=== PATIENT | female | born 1985 | race Caucasian/White ===

== ENCOUNTER 2024-07-12 19:47 | Outpatient (REF) | payer OTHER, SELFPAY ==
[2024-07-18 14:09] LABS: Age Gdln ACOG Testing Note (.); HPV Aptima Negative (Negative); IGP, Aptima HPV, rfx 16/18,45 Note (.)
== END 2024-07-12 19:48 | disposition home or self-care (01) ==
LOC: LAB 19:47
PROVIDERS: PCP Family Medicine; Visit Provider Physician Assistant
DX: Z01.419 Encounter for gynecological examination (general) (routine) without abnormal findings (principal)
CPT/HCPCS: 87624; 88175

== ENCOUNTER 2024-08-28 08:54 | Emergency (ER) | payer OTHER, SELFPAY ==
[2024-08-28 08:58] VITALS: BP 149/98; PULSE 94; TEMP 36.8; O2SAT 98; BMI 36.9
[2024-08-28 09:00] VITALS: O2SAT 97
[2024-08-28 09:01] VITALS: O2SAT 98
--- OUTSIDE RECORDS SUMMARY | 2024-08-28 09:02 | XMS_ITS | CCD ---
Author Organization [facility] Care Team Providers Care Cosmetics Supervisor Name Role Phone DR PAM KLINE Primary Care Unavailable DR JASON VUONG Admitting Dion VUONG, DR JASON Hernandez Attending UnavailNAZ Estevez Consulting Unavailable [place] VILLAR Consulting Unavailable Padmini Marroquin Unavailable Guadalupe Molina Unavailable Pam Kline MD Primary Care Provider NO [facility] Attending Unavailab LIZETT Aranda Attending Unavailable KAY CH Attending Unavailable KAY CH Referring Unavailable Medications Current Medications Medication Drug Class(es) Dates Sig (Normalized) Sig (Original) [id number] 200 actuat albuterol 0.09 mg/actuat metered dose inhaler (2 sources) beta2-Adrenergic Agonist Start: 08-12-2024 End: 08-12-2025 take 2 puff(s) by inhalation every four hours for wheezing albuterol HFA 90 mcg/act inhaler Indications: Acute cough Inhale 2 puffs every 4 (four) hours if needed for wheezing 18 g 08/12/2024 08/12/2025 Active amoxicillin 500 mg oral capsule (1 source) Penicillin-class Antibacterial Start: 11-10-2022 take 1 capsule by mouth every eight hours Amoxicillin 500 MG 1 capsule Orally three times a day for 10 day(s) Oct, Active amoxicillin 875 mg / clavulanate 125 mg oral tablet (2 sources) Penicillin-class Antibacterial Start: 08-12-2024 End: 08-19-2024 take 1 tablet by mouth in the morning amoxicillin-clavul anate (Augmentin) 875-125 MG tablet Indications: Acute cough Take 1 tablet (875 mg) by mouth in the morning and 1 tablet (875 mg) before bedtime. Do all this for 7 days. 14 tablet 08/12/2024 08/19/2024 Active doxycycline hyclate 100 mg oral tablet (2 sources) Tetracycline-class Drug Start: 08-12-2024 End: 08-12-2024 doxycycline (Vibra-Tabs) 100 MG tablet Indications: Acute cough Take 1 tablet (100 mg) by mouth in the morning and 1 tablet (100 mg) before bedtime. Do all this for 10 days. Take with a full glass of water and do not lie down for at least 30 minutes after.. 20 tablet 08/12/2024 08/12/2024 Discontinued (Entered in error) ibuprofen 200 mg oral tablet (7 sources) Nonsteroidal Anti-inflammatory Drug ibuprofen 200 MG tablet Take by mouth Active Multiple Vitamin (MULTIVITAMIN ADULT PO) (7 sources) Multiple Vitamin (MULTIVITAMIN ADULT PO) Multivitamin Active Completed/Discontinued Medications Medication Drug Class(es) Dates Sig (Normalized) Sig (Original) methylPREDNISolone 4 mg oral tablet (2 sources) Corticosteroid Start: methylPREDNISolone 4 MG as directed Orally for daily dose take half with breakfast, half with dinner for 6 days Aug, Not-Taking Problems Active Problems Problem Classification Problem Date Documented Date Episodic/Chronic Anxiety disorders (7 sources) Anxiety; Translations: [Anxiety disorder, unspecified] Onset: 01-04-2024 01-04-2024 Chronic E Codes: Natural/environment (1 source) Other and unspecified overexertion or strenuous movements or postures, initial encounter; Translations: [OTH AND UNS OVREXRT/STRN MVMT/POS INT] Onset: 04-25-2022 Episodic E Codes: Unspecified (1 source) Activity, walking, marching and hiking; Translations: [ACTIVITY WALKING MARCHING AND HIKING] Onset: 04-25-2022 Episodic Headache; including migraine (7 sources) Migraine without aura, not refractory ; Translations: [Migraine without aura, not intractable, without status migrainosus] Onset: 01-04-2024 01-04-2024 Chronic Other connective tissue disease (4 sources) Pain in right lower leg; Translations: [PAIN IN RIGHT LOWER LEG] Onset: 04-24-2022 Episodic Other lower respiratory disease (2 sources) Cough; Translations: [Acute cough] 08-12-2024 Episodic Other screening for suspected conditions (not mental disorders or infectious disease) (2 sources) Patient encounter status; Translations: [Encounter for screening mammogram for malignant neoplasm of breast] 07-12-2024 Episodic Other upper respiratory infections (3 sources) Acute pharyngitis, unspecified; Translations: [Streptococcal pharyngitis] Episodic Otitis media and related conditions (1 source) Other acute nonsuppurative otitis media, bilateral Episodic Sprains and strains (1 source) Strain of other muscle(s) and tendon(s) at lower leg level, right leg, initial encounter; Translations: [STRAIN OTH MSC TEND LOW RT LEG INIT] Onset: 04-25-2022 Episodic Past or Other Problems Problem Classification Problem Date Documented Da te Episodic/Chronic Headache; including migraine (7 sources) Headache disorder; Translations: [Other headache syndrome] Onset: 01-04-2024 01-04-2024 Episodic Other and unspecified benign neoplasm (7 sources) Melanocytic nevus; Translations: [Melanocytic nevi, unspecified] Onset: 01-04-2024 01-04-2024 Episodic Other skin disorders (7 sources) Skin tag; Translations: [Other hypertrophic disorders of the skin] Onset: 01-04-2024 01-04-2024 Episodic Unclassified (1 source) Contact with and (suspected) exposure to covid-19 Z20.822 Results Test Name Value Interpretation Reference Range Facility Laboratory - Microbiology an d Antimicrobial susceptibilityon 08-12-2024 SARS-CoV-2 (COVID-19) RNA LEONOR+probe Ql (Unsp spec) - [facility] No Panel Informationon 08-12 FLU A - [facility] FLU B - [facility] [place] 3D e Interpretation and review of laboratory results Normal [facility] CHEST 2 VIEWSon XR CHEST 2 VIEWS Exam: XR - CHEST 2 VIEWS Reason for study: Productive cough Comparison: None FINDINGS: Lines and Tubes: None Lungs and Pleural Space: No focal consolidation, pleural effusion, or pneumothorax. Cardiac silhouette, hilar regions, and trachea: Normal. Thoracic osseous structures: Normal. Overlying soft tissues: Normal. Upper abdomen: Normal. IMPRESSION: Negative chest Dictated on: 08/12/2024 10:38 AM This report has been electronically signed and approved by the interpreting Radiologist. Electronically Signed Dhiraj Batres D.O. 2024-08-12 10:40:47 Normal Not Available IGP,APTIMA HPV,AGE GDLNon AGE GDLN ACOG TESTING Note . [facility] Comment on above: TESTS RESULT FLAG U NITS REF RANGE LAB Clinician Provided Cytology Information Source.............Cervix;Endocervix No. of containers..01 ThinPrep Vial Age Algo ACOG Kiki... FLAG LEGEND: L-Low Normal,H-High Normal,LL-Alert Low,HH-Alert High <-Panic Low,>-Panic High,A-Abnormal,AA-Critical Abnormal Performed at: 01 =[address] [place] [address] Billie Cervantes MD, HPV APTIMA Negative Negative [facility] Comment on above: This nucleic acid am plification test detects fourteen high- risk HPV types (16,18,31,33,35,39,45,51,52,56,58,59,66,68) without differentiation. Performed at: =[address] [id number] Safety Admin Assistant: Billie Cervantes MD, Phone: [phone] Performed at: [address] [place], [place] [id number] Safety Admin Assistant: Billie Cervantes MD, Phone: [phone] IGP, APTIMA HPV, RFX 16/18,[address] [facility] Comment on above: TESTS RESULT FLAG UN ITS REF RANGE LAB DIAGNOSIS: 02 NEGATIVE FOR INTRAEPITHELIAL LESION OR MALIGNANCY. CELLULAR CHANGES ASSOCIATED WITH INFLAMMATION ARE PRESENT. Specimen adequacy: 02 Satisfactory for evaluation. Endocervical and/or squamous metaplastic cells (endocervical component) are present. Performed by: 02 Venita Hart, Safety Tech (ASCP) . 02 Note: Note 02 The Pap smear is a screening test designed to aid in the detection of premalignant and malignant conditions of the uterine cervix. It is not a diagnostic procedure and should not be used as the sole means of detecting cervical cancer. Both false-positive and false-negative reports do occur. Test Methodology: Note 02 This liquid based ThinPrep(R) pap test was screened with the use of an image guided system. HPV Genotype Reflex Note 02 Criteria not met, HPV Genotype not performed. FLAG LEGEND: L-Low Normal,H-High Normal,LL-Alert Low,HH-Alert High <-Panic Low,>-Panic High,A-Abnormal,AA-Critical Abnormal Performed at: 02 [address] [facility] [address] [place] [address] Billie Cervantes MD, BRUSH-SPATULA CERVIX ENDOCERVIX [facility] Quick Strepon 11-10-2022 S. pyogenes Org specific cx Ql (Throat) Positive [facility] Other Quick Strep [facility] Other [facility]rep[facility] 08-12-2022 S. pyogenes Org specific cx Ql (Throat) Negative [facility] Other Quick Strep [facility] Other US MARICRUZ DOP LEG RTon 04-24-20 22 US MARICRUZ DOP LEG RT EXAM: US MARICRUZ DOP LEG RT HISTORY: Swelling of lower leg with right calf pain COMPARISON: None. TECHNIQUE: Multiple sonographic images of the deep veins of the right lower extremity were obtained, supplemented with Doppler. FINDINGS: The deep veins of the right lower extremity are well visualized from the groin to the mid calf. No filling defect is identified to indicate a thrombus. There is normal compression augmentation of flow throughout. Normal waveforms are present. IMPRESSION: There is no direct or indirect evidence of deep vein thrombosis in the right lower extremity at this time. Electronically authenticated by: [place] VILLAR Date: 2022-04-24 16:31 Normal [facility] Vital Signs Date Time Vital Sign Value Performing Clinician Facility 08-12-2024 09:50-0400 Body height 163.8 cm Kay Ch NP Work Phone: [facility] 08-12-2024 09:50-0400 Body mass index (BMI) [Ratio] 38.97 kg/m2 Kay Ch NP Work Phone: [facility] 08-12-2024 09:50-0400 Body temperature 100.8 [degF] Kay Ch NP Work Phone: [facility] 08-12-2024 09:50-0400 Body weight 104.6 kg Kay Ch NP Work Phone: [facility] 08-12-2024 09:50-0400 Diastolic blood pressure 74 mm[Hg] Kay Ch NP Work Phone: [facility] 08-12-2024 09:50-0400 Heart rate 97 /min Kay Ch NP Work Phone: [facility] 08-12-2024 09:50-0400 SaO2% (BldA) [Mass fraction] 99 % Kay Ch [employer] Work Phone: [facility] 08-12-2024 09:50-0400 Systolic blood pressure 120 mm[Hg] Kay Ch [employer] Work Phone: [facility] 07-12-2024 10:34-0400 Body mass index (BMI) [Ratio] 39.21 kg/m2 Lizett Arevalo PA Work Phone: [facility] 07-12-2024 10:34-0400 Body weight 105.23 kg Lizett Arevalo PA Work Phone: [facility] 07-12-2024 10:34-0400 Diastolic blood pressure 80 mm[Hg] Lizett rAevalo PA Work Phone: [facility] 07-12-2024 10:34-0400 Systolic blood pressure 130 mm[Hg] Lizett Arevalo PA Work Phone: [facility] 11-10-2022 11:45-0500 Body height 162.56 cm Guadalupe Molina Other [facility] Other 11-10-2022 11:45-0500 Body mass index (BMI) [Ratio] 36.04 kg/m2 Guadalupe Molina Other [facility] Other 11-10-2022 11:45-0500 Body temperature 98.3 [degF] Guadalupe Tracy Other [facility] Other 11-10-2022 11:45-0500 Body weight 95.26 kg Guadalupe Tracy Other [facility] Other 11-10-2022 11:45-0500 Diastolic blood pressure 90 mm[Hg] Guadalupe Molina Other [facility] Other 11-10-2022 11:45-0500 Respiratory rate 18 /min Guadalupe Molina Other [facility] Other 11-10-2022 11:45-0500 SaO2% (BldA) [Mass fraction] 98 % Guadalupe Molina Other [facility] Other 11-10-2022 11:45-0500 Systolic blood pressure 147 mm[Hg] Guadalupe Molina Other [facility] Other 08-12-2022 17:15-0400 Body height 162.56 cm Padmini Marroquin Other [facility] Other 08-12-2022 17:15-0400 Body mass index (BMI) [Ratio] 36.04 kg/m2 Padmini Marroquin Other [facility] Other 08-12-2022 17:15-0400 Body temperature 97.1 [degF] Padmini Marroquin Other [facility] Other 08-12-2022 17:15-0400 Body weight 95.26 kg Padmini Marroquin Other [facility] Other 08-12-2022 17:15-0400 Respiratory rate 18 /min Padmini Marroquin Other [facility] Other 08-12-2022 17:15-0400 SaO2% (BldA) [Mass fraction] 99 % Padmini Marroquin Other [facility] Other Encounters Encounter Date Encounter Type Care Provider Facility Start: 08-12-2024 End: 08-12-2024 Clifford Ch NP Work Phone: [facility] Start: 08-12-2024 End: 08-12-2024 Bamboo flowsheet Kay Ch [employer] Work Phone: [facility] Start: 08-12-2024 End: 08-12-2024 ambulatory KAY CH Not Available Start: 08-12-2024 End: 08-12-2024 Office outpatient visit 15 minutes Kay Ch [employer] Work Phone: [facility] Comment on above: Acute cough (Primary Dx) Start: 08-12-2024 End: 08-12-2024 ambulatory KAY CH Not Available Start: 07-12-2024 End: 07-12-2024 Bamboo flowsheet Lizett BREEN Work Phone: [facility] Start: 07-12-2024 End: 07-18-2024 Bamboo flowsheet Lizett BREEN Work Phone: [facility] Start: 07-12-2024 End: 07-18-2024 [facility] Result Encounter Generic External Data Provider [facility] Unsolicited Start: 07-12-2024 End: 07-12-2024 Patient encounter procedure Lizett BREEN Work Phone: [facility] Start: 07-12-2024 End: 07-12-2024 Periodic preventive med est patient 40-64yrs Lizett BREEN Work Phone: [facility] Comment on above: Well woman exam with routine gynecological exam; Breast cancer screening by mammogram Start: 07-12-2024 End: 07-12-2024 ambulatory LIZETT AREVALO Not Available Start: 01-04-2024 End: 01-04-2024 ambulatory NO [facility] Not Available Start: 11-10-2022 End: 11-10-2022 ambulatory Guadalupe Molina Other [facility] Other Start: 11-10-2022 Office outpatient vi sit 25 minutes Guadalupe Molina [facility] [place] Start: 08-12-2022 End: 08-12-2022 ambulatory Padmini Marroquin Other [place] [employer] Other Start: 08-12-2022 Office outpatient ne w 30 minutes Padmini Marroquin [facility] [place] Start: 04-24-2022 End: 04-24-[address] PAM KLINE Facility:[facility]1 Procedures Date Procedure Procedure Detail Performing Clinician Start: 08-12-2024 STATUS COVID-19/FLU Joselyn Ch [employer] Work Phone: Start: 07-12-2024 IGP,APTIMA HPV,AGE GDLN Lizett Kristan PA Work Phone: Start: 07-12-2024 Microscopic observat ion [Identifier] in Cervix by Cyto stain Kay Ch [employer] Work Phone: Plan of Treatment Date Care Activity Detail Author Start: 07-12-2027 Screening for malignant neoplasm of cervix [facility] Start: 08-12-2024 End: 08-12-2025 [address] [facility] Work Phone: Comment on above: Expected: 08/12/2024 , Expires: 08/12/2025 Start: 08-12-2024 End: 08-12-2024 Patient encounter procedure 08/12/2024 10:00 AM EDT Office Visit [facility] [address] [place] [address] Kay Ch NP [address] [place] [address] Arrived [facility] Comment on above: Arrived Start: 07-12-2024 End: 09-11-2025 MG Breast - bilateral Screening Bilateral screening mammogram Imaging Routine Breast cancer screening by mammogram Expected: 07/12/2024 (Approximate), Expires: 09/11/2025 [facility] Work Phone: Comment on above: Expected: 07/12/2024 (Approximate), Expires: 09/11/2025 Start: 07-12-2024 End: 07-12-2024 Patient encounter procedure 07/12/2024 10:00 [address] EDT [address] [facility] [address] [place] [address] Lizett Arevalo PA [address] [address] [facility] Comment on above: Arrived Start: 06-12-2024 Influenza vaccination Influenza Vacc ine (#1) [facility] Start: 2024 Screening for malignant neoplasm of breast Mammogram [facility] Start: 02-12-2014 Screening for malignant neoplasm of cervix [facility] Start: 02-12-2005 Screening for malignant neoplasm of cervix Pap Smear [facility] THIN PREP TIS PAP AN D HR HPV DNA THIN PREP TIS PAP AND HR HPV DNA Pathology and Cytology Routine Well woman exam with routine gynecological exam Ordered: 07/12/[address] [facility] Comment on above: Ordered: 07/12/2024 Immunizations Immunization Date Immunization Notes Care Provider Fa [facility] 09-02-2019 influenza, injectabl e, quadrivalent, contains preservative Lizett BREEN Work Phone: [facility] 09-02-2019 influenza virus vacc ine, unspecified formulation Lizett BREEN Work Phone: [facility] 07-02-2018 influenza, injectabl e, quadrivalent, contains preservative Lizett BREEN Work Phone: [facility] 08-26-2017 influenza, injectabl e, quadrivalent, preservative free Lizett BREEN Work Phone: [facility] 07-18-2016 influenza, injectabl e, quadrivalent, preservative free Lizett BREEN Work Phone: [facility] 06-15-2015 influenza, seasonal, injectable, preservative free Lizett BREEN Work Phone: [facility] 04-24-2015 tetanus toxoid, redu alice diphtheria toxoid, and acellular pertussis vaccine, adsorbed Lizett BREEN Work Phone: [facility] 07-20-2014 influenza, seasonal, injectable, preservative free Lizett BREEN Work Phone: [facility] Payers Date Payer Category Payer Managed Care HMO (unspecified) [id number] 1984 Unknown [id number] 1984 Unknown [id number] 1984 Unknown [id number] 1984 Unknown [id number] 1959 Private Health Insurance [id number] Social History Date Type Detail Facility Start: 01-04-2024 End: 08-12-2024 Sex Assigned At [facility] Start: 01-04-2024 Tobacco smoking stat [facility] Never smoked tobacco [facility] Start: 01-04-2024 Tobacco use and exposure Smoke less tobacco non-user [facility] Start: 01-04-2024 End: 08-12-2024 Alcoholic beverage intake Ex-drinker (finding) [facility] Start: 01-04-2024 End: 08-12-2024 History of Social function [facility] In a typical week, h ow many times do you talk on the telephone with family, friends, or neighbors? Patient declined [facility] Are you now , , , , never or living with a partner? [facility] How often to you hav e a drink containing alcohol? Never [facility] In the past 12 month s, was there a time when you were not able to pay the mortgage or rent on time? No [facility] Start: 01-04-2024 Alcohol Comment Caffeine intak e: 1-2 cups per day coffee [facility] Start: 1985 Sex assigned at Female [facility] Start: 05-26-2023 Gender identity Identifies as female gender (finding) [facility] History of Present illness Narrative 08-12-2024 Kay ChGRADY - 08/12/2024 10:00 AM EDT Note Date & Type Note Facility 08-12-2024 History of Presen t illness Narrative Images from the original note were not included. Meliza Hightower is a 39 y.o. female presents with chief complaint of Cough (Started Thursday night, has wheezing. /) HPI: History of Present Illness The patient presents for evaluation of a cough. She began experiencing a cough on Thursday night, which has persisted since then. The cough is producing [place] green phlegm. She reports feeling wheezy when lying down to sleep last night and this morning. She also had a fever on Thursday and Thursday. She took Advil on these days for body aches and has been using a humidifier and taking hot showers to alleviate her symptoms. Her daughter recently had an ear infection and cough, leading her to believe she may have contracted the same illness. She reports no nasal congestion or drainage. Cough The current episode started in the past 7 days. The problem has been unchanged. The problem occurs every few minutes. The cough is Productive of sputum. Associated symptoms include wheezing. Pertinent negatives include no chest pain, chills, ear congestion, ear pain, fever, headaches, heartburn, hemoptysis, myalgias, nasal congestion, postnasal drip, rash, rhinorrhea, sore throat, shortness of breath, sweats or weight loss. The symptoms are aggravated by lying down. SUBJECTIVE: MEDICATIONS: Current Outpatient Medications Medication Instructions ibuprofen 200 MG tablet Take by mouth Multiple Vitamin (MULTIVITAMIN ADULT PO) Multivitamin REVIEW OF SYMPTOMS: Review of Systems Constitutional: Negative for chills, fever and weight loss. HENT: Negative for ear pain, postnasal drip, rhinorrhea and sore throat. Respiratory: Positive for cough and wheezing. Negative for hemoptysis and shortness of breath. Cardiovascular: Negative for chest pain. Gastrointestinal: Negative for heartburn. Musculoskeletal: Negative for myalgias. Skin: Negative for rash. Neurological: Negative for headaches. OBJECTIVE: Visit Vitals BP 120/74 (BP Location: Left arm, Patient Position: Sitting, BP Cuff Size: Large adult) Pulse 97 Temp 100.8 F (Tympanic) Ht 5' 4.5 Wt 230 lb 9.6 oz SpO2 99% BMI 38.97 kg/m OB Status Having periods Smoking Status Never BSA 2.19 m Physical Exam Vitals reviewed. Constitutional: Appearance: She is obese. HENT: Head: Normocephalic and atraumatic. Left Ear: Tympanic membrane normal. Nose: Congestion and rhinorrhea present. Comments: - sinus tenderness Mouth/Throat: Mouth: Mucous membranes are moist. Eyes: Pupils: Pupils are equal, round, and reactive to light. Cardiovascular: Rate and Rhythm: Normal rate and regular rhythm. Pulses: Normal pulses. Heart sounds: Normal heart sounds. Pulmonary: Effort: Pulmonary effort is normal. Breath sounds: Decreased breath sounds present. Comments: Decreased in BLL, rhonchi and wheezing on the right Musculoskeletal: Cervical back: Normal range of motion and neck supple. Skin: General: Skin is warm and dry. Capillary Refill: Capillary refill takes less than 2 seconds. Findings: No rash. Neurological: General: No focal deficit present. Mental Status: She is alert and oriented to person, place, and time. ASSESSMENT AND PLAN: Assessment/Plan Diagnoses and all orders for this visit: Acute cough - XR chest 2 views; Future - STATUS COVID-19/FLU - amoxicillin-clavulanate (Augmentin) 875-125 MG tablet; Take 1 tablet (875 mg) by mouth in the morning and 1 tablet (875 mg) before bedtime. Do all this for 7 days. - albuterol HFA 90 mcg/act inhaler; Inhale 2 puffs every 4 (four) hours if needed for wheezing -Covid/flu negative. Obtain chest x-ray, concern for pneumonia. Will start her on augmentin to cover. Can use mucinex OTC prn. Albuterol sent to pharmacy. Tylenol/motrin OTC prn for fever/discomfort. documented in this encounter [facility] History of Present illness Narrative 07-12-2024 NUHA Valencia - 07/12/2024 10:00 AM EDT Note Date & Type Note Facility 07-12-2024 History of Presen t illness Narrative Reason for Appointment: Patient ID: Meliza Hightower is a 39 y.o. female who presents for Gynecologic Exam Patient presents today for Annual Exam. MEDICATIONS Current Outpatient Medications Medication Instructions ibuprofen 200 MG tablet Oral Multiple Vitamin (MULTIVITAMIN ADULT PO) Multivitamin ALLERGIES No Known Allergies PROBLEMS Active Ambulatory Problems Diagnosis Date Noted Anxiety 01/04/2024 Atypical mole 01/04/2024 Migraine without aura and without status migrainosus, not intractable (CMS/HCC) 01/04/2024 Other headache syndrome 01/04/2024 Skin tag 01/04/2024 Resolved Ambulatory Problems Diagnosis Date Noted No Resolved Ambulatory Problems Past Medical History: Diagnosis Date Cross eyed Gestational diabetes HISTORY PAST MEDICAL HISTORY SOCIAL HISTORY Past Medical History: Diagnosis Date Cross eyed Gestational diabetes Social History Tobacco Use Smoking status: Never Smokeless tobacco: Never Substance Use Topics Alcohol use: Not Currently Comment: Caffeine intake: 1-2 cups per day coffee Drug use: Never FAMILY HISTORY No family history on file. SURGICAL HISTORY Past Surgical History: Procedure Laterality Date CT ANGIOGRAM CHEST 12/13/2018 CT ANGIOGRAM CHEST [facility] DILATION AND CURETTAGE OF UTERUS 2011 EYE SURGERY Procedure:surgical repair;Disease:cross eyed REVIEW OF SYSTEMS Review of Systems: Review of Systems Constitutional: Negative. HENT: Negative. Eyes: Negative. Respiratory: Negative. Cardiovascular: Negative. Gastrointestinal: Negative. Genitourinary: Negative. Musculoskeletal: Negative. Skin: Negative. Neurological: Negative. All other systems reviewed and are negative. Hematological: Negative. Endocrine: Negative. Allergic/Immunologic: Negative. OBJECTIVE Objective: Physical Exam Constitutional: Appearance: Normal appearance. She is well-developed. Genitourinary: Vulva normal. Right Adnexa: not tender and no mass present. Left Adnexa: not tender and no mass present. No cervical discharge. Breasts: Breasts are soft. Right: Normal. Left: Normal. HENT: Head: Normocephalic. Nose: Nose normal. Mouth/Throat: Mouth: Mucous membranes are moist. Cardiovascular: Rate and Rhythm: Normal rate and regular rhythm. Pulmonary: Effort: Pulmonary effort is normal. Breath sounds: Normal breath sounds. Abdominal: General: Bowel sounds are normal. There is no distension. Palpations: Abdomen is soft. Tenderness: There is no abdominal tenderness. There is no guarding or rebound. Musculoskeletal: General: No swelling. Normal range of motion. Cervical back: Normal range of motion. Right lower leg: No edema. Left lower leg: No edema. Neurological: General: No focal deficit present. Mental Status: She is alert and oriented to person, place, and time. Skin: General: Skin is warm and dry. Psychiatric: Mood and Affect: Mood normal. Behavior: Behavior normal. Vitals and nursing note reviewed. Exam conducted with a fermentation operator present. Vitals: Estimated body mass index is 38.67 kg/m as calculated from the following: Height as of 01/04/24: 5' 4.5 . Weight as of 01/04/24: 228 lb 12.8 oz. BP: No LMP recorded. ASSESSMENT & PLAN ICD-10-CM 1. Well woman exam with routine gynecological exam Z01.419 THIN PREP TIS PAP AND HR HPV DNA 2. Breast cancer screening by mammogram Z12.31 Bilateral screening mammogram Bilateral screening mammogram Pt present today for annual visit. Pt has not had an annual for several years. Pt complains of a lump on her left breast. A mammogram order was given to patient to schedule at [facility]. Pt also complains of a small hole on the outside of her right side pubic area. Pt states she had a small cyst like bump there a few weeks ago and it burst and thought it went away, however when she looked a few days ago there is a small hole and would like Lizett Arevalo to take a look and make sure there is no infection. Small openeing noted to the left inguinal region, silver nitrate applied to area. Pt to call if symptoms do not improve or drainage occures. Breast exam was preformed and pap smear was preformed and collected by Lizett Arevalo. Silver nitrate was put on the small opening patient was complaining of on her right pubic area. Advised to keep it covered while it heals. Pt verbally understood. Patient is to return back in a year for an annual visit. Documented by Sommer Calderón MA on behalf of: NUHA Valencia documented in this encounter [facility] Evaluation note 11-10-2022 Note Date & Type Note Facility 11-10-2022 Evaluation note Encounter Date Diagnosis Assessment Notes Oct, Sore throat (ICD-10 - J02.9) Oct, Strep pharyngitis (ICD-10 - J02.0) Strep throat material was printed Drink plenty fluids, get plenty of rest. Take Tylenol or Motrin as needed for aches pains or fevers. Off school today and tomorrow. Take the amoxicillin as prescribed until gone. Follow-up with your family physician if no improvement in 2 to 3 days. [facility] Other Evaluation note 08-12-2022 Note Date & Type Note Facility 08-12-2022 Evaluation note Encounter Date Diagnosis Assessment Notes Aug, Sore throat (ICD-10 - J02.9) Aug, Acute effusion of both middle ears (ICD-10 - H65.193) Advised patient that rapid Strep test and COVID PCR tests were negative today. Discussed diagnosis with patient. Advised to use rx of steroid as directed, finish entire course, take with food and plenty of water, reviewed side effects. Encouraged supportive care as directed, push fluids/rest, nasal saline washes as directed, may use Tylenol as needed, Zyrtec or Flonase. Patient to follow up with PCP or UC for any new or worsening symptoms. Immediate eval if SOB, wheezing, difficulty breathing, or other concerning symptoms. Patient verbalizes understanding and is agreeable to treatment plan Aug, Contact with and (suspected) exposure to covid-19 (ICD-10 - Z20.822) [facility] Other Clinical Note 06-17-2022 Note Date & Type Note Facility 06-17-2022 Note PROCEDURE: [facility] VCT 64, 5 mm slice axial images were acquired with coronal reconstruction through the brain without contrast. HISTORY: Headache FINDINGS: No worrisome intra- or extra-axial mass lesions, mass effect or hemorrhage are identified. No evidence of major vessel ischemia is noted. Ventricular size is normal for this age, and commensurate with the cerebral sulci. Calvarium, mastoid air cells, paranasal sinuses and orbital contents are unremarkable. IMPRESSION: Normal non-contrast brain CT. Report reported and signed by Polo Naylor on 06/17/2022 [address] [facility] Higher [facility] Administrator Evaluation note Note Date & Type Note Facility Evaluation note Diagnosis Well woman exam with routine gynecological exam Routine gynecological examination Breast cancer screening by mammogram documented in this encounter [facility] Evaluation note Note Date & Type Note Facility Evaluation note Diagnosis Acute cough- Primary documented in this encounter [facility] History general Narrative - Reported Note Date & Type Note Facility History general Narrative - Reported Type Surgical History eyes [facility] Other Summary Purpose Family History No Family History Records FoundNo Family History Records FoundNo Family History Records Found Advance Directives No Advanced Directives Records FoundNo Advanced Directives Records FoundNo Advanced Directives Records Found Additional Source Comments INFORMATION SOURCE (unrecogn ized section and content) DATE CREATED AUTHOR 05/01/2022 [facility] DATE CREATED AUTHOR AUTHOR'S ORGANIZ ATION 06/18/2022 [facility] DATE CREATED AUTHOR AUTHOR'S ORGANIZ ATION 08/17/2024 [facility] dical Specialists EPIC REASON FOR VISIT (unrecogniz ed section and content) Reason Comments Gynecologic Exam Reason Comments Cough Started Thursday nig ht, has wheezing. Care Teams (unrecognized sec tion and content) Cosmetics Supervisor Relationship Specialty Start Date End Date Pam Kline MD [address] [facility] [place] [address] PCP - General Family Medicine 02/17/23 Cosmetics Supervisor Relationship Specialty Start Date End Date Pam Kline MD [address] [place] [address] PCP - General Family Medicine 02/17/23 Cosmetics Supervisor Relationship Specialty Start Date End Date Pam Kline MD [address] [place] [address] PCP - General Family Medicine 02/17/23 Cosmetics Supervisor Relationship Specialty Start Date End Date Pam Kline MD [address] [facility] [place] [address] PCP - General Family Medicine 02/17/23 Cosmetics Supervisor Relationship Specialty Start Date End Date Pam Kline MD [address] [place] [address] PCP - General Family Medicine 02/17/23 FOR RECORDS PERTAINING TO PATIENTS WHO ARE OR HAVE BEEN ENROLLED IN A CHEMICAL DEPENDENCY/SUBSTANCEABUSE PROGRAM, SOME INFORMATION MAY BE OMITTED. This clinical summary was aggregated from multiple sources. Caution should be exercised in using it in the provision of clinical care. This summary normalizes information from multiple sources, and as a consequence, information in this document may materially change the coding, format and clinical context of patient data. In addition, data may be omitted in some cases. CLINICAL DECISIONS SHOULD BE BASED ON THE PRIMARY CLINICAL RECORDS. [employer] [facility]. provides no warranty or guarantee of the accuracy or completeness of information in this document.
[2024-08-28 09:03] VITALS: BP 149/98; PULSE 93; O2SAT 97
--- NOTE | 2024-08-28 09:04 | XR_ITS ---
The [address] [address] Patient Name: JAIMIE HIGHTOWER MRN: [id number] date: 1985 Sex: F Assigned Patient Location: ER Current Patient Location: ER Accession/Order Number: [id number] Exam Date: 08/28/2024 09:12 Report Date: 08/28/2024 09:25 At the request of: TERESA GUZMAN Procedure: XR chest 1V EXAM: XR chest 1V HISTORY: cp COMPARISON: None TECHNIQUE: AP portable upright view of the chest FINDINGS: Lungs are clear of focal consolidation. No pleural effusion or pneumothorax. Normal cardiomediastinal silhouette. No pulmonary vascular congestion. No acute osseous or soft tissue abnormalities. XR/XR chest 1V IMPRESSION: No acute cardiopulmonary process. Electronically authenticated by: KATJA DINERO Date: 08/28/2024 09:25
--- NOTE | 2024-08-28 09:04 | ECG_ITS ---
The [facility] Test Date: 2024-08-28 Pat Name: JAIMIE HIGHTOWER Department: Room: - Gender: Female Communication Manager: : 1985 Requested By: Order Number: [id number] Reading MD: TRINA SCHILLING Measurements Intervals [place] Rate: 85 P: 67 KS: 120 QRS: 70 QRSD: 88 T: 45 QT: 354 QTc: 396 Interpretive Statements 1100 Sinus rhythm 1102 Sinus arrhythmia 9110 normal ECG Compared to ECG 04/24/2022 16:48:00 No significant changes Electronically Signed On 08-28-2024 18:28:36 EST by TRINA SCHILLING
[2024-08-28 09:15] LABS: Basophils Absolute Auto 0.1 10^3/uL (0.0-0.1); Basophils Percent Auto 0.6 % (0.2-2.0); Eosinophils Absolute Auto 0.3 10^3/uL (0.0-0.7); Eosinophils Percent Auto 3.2 % (0.9-7.0); Hematocrit 41.9 % (36.0-48.0); Hemoglobin 13.9 g/dL (12.0-16.0); Immature Granulocytes Abs Auto 0.02 10^3/uL (0.00-0.03); Immature Granulocytes Pct Auto 0.2 % (0.0-0.5); Lymphocytes Absolute Auto 2.7 10^3/uL (1.2-3.8); Lymphocytes Percent Auto 31.4 % (20.5-60.0); Mean Corpuscular HGB Conc 33.2 g/dL (29.9-35.2); Mean Corpuscular Hemoglobin 30.8 pg (26.7-34.0); Mean Corpuscular Volume 92.9 fL (81.0-99.0); Mean Platelet Volume 9.4 fL (9.5-13.5); Monocytes Absolute Auto 0.4 10^3/uL (0.3-0.8); Monocytes Percent Auto 4.6 % (1.7-12.0); Neutrophils Absolute Auto 5.2 10^3/uL (1.4-6.5); Platelet Count 231 10^3/uL (150-450); Red Blood Count 4.51 10^6/uL (4.20-5.40); Red Cell Distribution Width 12.7 % (11.0-15.0); White Blood Count 8.7 10^3/uL (4.0-11.0)
--- NOTE | 2024-08-28 09:29 | ED_ITS ---
HPI - Chest Pain General Chief Complaint: Chest Pain Stated Complaint: CHEST PAIN Time Seen by Provider: 08/28/24 09:04 Source: patient Mode of arrival: walk-in Limitations: no limitations History of Present Illness HPI narrative: The patient is a 39 years old female coming to us with a history of chest pain for the last 3 days, mentioned that the chest pain is retrosternal sometimes associated with certain position and sleeping on her back will bring the pain more in addition to sometimes leaning forward. The patient denies any nausea vomiting or any fever or chills but she mentioned that she been taking an tibiotic for the second time since the beginning of the July which is last month after she was diagnosed with a cough and possible pneumonia The patient has history of using albuterol inhaler but she has not been using it at home for few days as she mentioned that she was taking antibiotic and she thought she does not needed The patient have no leg swelling no edema Related Data Home Medications ?Medication ?Instructions ?Recorded ?Confirmed albuterol sulfate 90 mcg/actuation 2 inh inhalation Q4H PRN shortness 08/28/24 08/28/24 aerosol inhaler of breath or wheezing azithromycin 250 mg tablet 250 mg PO DAILY 08/28/24 08/28/24 Previous Rx's ?Medication ?Instructions ?Recorded diclofenac sodium 75 mg 75 mg PO BID PRN pain #14 tabs 08/28/24 tablet,delayed release famotidine 20 mg tablet (Pepcid) 20 mg PO BID #10 tabs 08/28/24 Allergies Allergy/AdvReac Type Severity Reaction Status Date / Time No Known Drug Allergies Allergy Verified 08/28/24 08:58 Review of Systems ROS Status of ROS 10 or more systems reviewed and unremark able except as noted in history and below PFSH PFSH Social History Little interest or pleasure in doing things: not at all Feeling down, depressed, or hopeless: not at all Exam Narrative Exam Narrative: Nurses notes and vital signs reviewed and patient is not hypoxic. General: Well-appearing and in no apparent distress. Skin: Warm, dry, no pallor noted. No rash. Head: Normocephalic, atraumatic. Neck: Supple, non-tender. Eye: Pupils are equal, round and EOMI. No scleral icterus. Ears, Nose, Mouth, and Throat: TM are clear, no nasal mucosal hypertrophy. Oral mucosa is moist, no posterior oropharynx erythema, uvula is mid-line Cardiovascular: Regular Rate and Rhythm without murmur, gallop or rub. Respiratory: Rhonchi heard in right lung field Back: No midline thoracic or lumbar vertebral tenderness. No CVA tenderness Musculoskeletal: normal ROM, no calf or popliteal tenderness, no lower extremity edema/swelling GI: Abdomen is soft, non-distended. Normal bowel sounds. No masses appreciated. No tenderness to palpation. No rebound, guarding, or rigidity noted. Neurological: A&O x4. No cranial nerve dysfunction observed. No truncal ataxia. Moves all extremities. Sensation intact. Psychiatric: Cooperative and interactive. Normal mood and affect. Constitutional Vital Signs, click to edit/add: Last Vital Signs Temp 98.3 F 08/28/24 08:58 Pulse 75 08/28/24 09:30 Resp 6 L 08/28/24 09:30 BP 133/86 08/28/24 09:30 Pulse Ox 94 L 08/28/24 09:30 O2 Del Method Room Air 08/28/24 08:58 Course Vital Signs Vital signs: Vital Signs Temperature 98.3 F 08/28/24 08:58 Pulse Rate 94 H 08/28/24 08:58 Respiratory Rate 22 H 08/28/24 08:58 Blood Pressure 149/98 H 08/28/24 08:58 Pulse Oximetry 98 08/28/24 08:58 Oxygen Delivery Method Room Air 08/28/24 08:58 Temperature 98.3 F 08/28/24 08:58 Pulse Rate 75 08/28/24 09:30 Respiratory Rate 6 L 08/28/24 09:30 Blood Pressure 133/86 08/28/24 09:30 Pulse Oximetry 94 L 08/28/24 09:30 Oxygen Delivery Method Room Air 08/28/24 08:58 MDM - Chest Pain MDM Narrative Medical decision making narrative: The patient EKG showing sinus rhythm with a heart rate of [address] elevation or depression Chest x-ray showed no acute pathology The patient CBC and chemistry showed no acute pathology and the patient troponin were negative As she also had a D-dimer that was negative Her presentation is mostly secondary to atypical chest pain and mostly pleuritic pain she was treated in the ER with Toradol after which she was feeling better The patient discharged home with Voltaren as well as Pepcid The patient is to follow up with primary care physician in next 2-3 days or to return to the emergency department should any of the signs or symptoms worsen or new symptoms develop. The patient agrees with the following Diagnosis and Treatment plan and the patient will be discharged home. Lab Data Labs: Lab Results 08/28/24 Range/Units 09:05 WBC 8.7 (4.0-11.0) 10^3/uL RBC 4.51 (4.20-5.40) 10^6/uL Hgb 13.9 (12.0-16.0) g/dL Hct 41.9 (36.0-48.0) % MCV 92.9 (81.0-99.0) fL MCH 30.8 (26.7-34.0) pg MCHC 33.2 (29.9-35.2) g/dL RDW 12.7 (11.0-15.0) % Plt Count 231 (150-450) 10^3/uL MPV 9.4 L (9.5-13.5) fL Neut % (Auto) 60.0 (43.0-75.0) % Lymph % (Auto) 31.4 (20.5-60.0) % [place] % (Auto) 4.6 (1.7-12.0) % Eos % (Auto) 3.2 (0.9-7.0) % Baso % (Auto) 0.6 (0.2-2.0) % Neut # (Auto) 5.2 (1.4-6.5) 10^3/uL Lymph # (Auto) 2.7 (1.2-3.8) 10^3/uL [place] # (Auto) 0.4 (0.3-0.8) 10^3/uL Eos # (Auto) 0.3 (0.0-0.7) 10^3/uL Baso # (Auto) 0.1 (0.0-0.1) 10^3/uL Abs Immat Gran (auto) 0.02 (0.00-0.03) 10^3/uL Imm/Tot Granulo (auto) 0.2 (0.0-0.5) % PT 9.8 (9.0-11.6) sec INR <0.93 D-Dimer 0.43 (<=0.59) mg/L FEU Sodium 142 (136-145) mmol/L Potassium 4.1 (3.5-5.1) mmol/L Chloride 104 (98-107) mmol/L Carbon Dioxide 23.5 (21.0-32.0) mmol/L Anion Gap 18.6 BUN 9.0 (7.0-18.0) mg/dL Creatinine 0.91 (0.55-1.02) mg/dL Est GFR ( Amer) >60 (>=60 mL/min/1.73m^2) Est GFR (Non-Af Amer) >60 (>=60 mL/min/1.73m^2) BUN/Creatinine Ratio 9.9 Glucose 103 (74-106) mg/dL Calcium 8.7 (8.5-10.1) mg/dL Total Bilirubin 0.7 (0.2-1.0) mg/dL AST 18 (15-37) U/L ALT 28 (14-59) U/L Alkaline Phosphatase 87 (46-116) U/L Troponin I High Sens 5.5 (4.0-51.3) pg/mL Total Protein 7.4 (6.4-8.2) g/dL Albumin 3.5 (3.4-5.0) g/dL Globulin 3.9 g/dL Albumin/Globulin Ratio 0.9 Serum HCG, Qual Negative (NEGATIVE) Discharge Plan Discharge Chief Complaint: Chest Pain Clinical Impression: Atypical chest pain, Chest pain, pleuritic Patient Disposition: Home, Self-Care Time of Disposition Decision: 09:55 Condition: Good Prescriptions / Home Meds: New famotidine [Pepcid] 20 mg tablet 20 mg PO BID Qty: 10 0RF diclofenac sodium 75 mg tablet,delayed release (DR/EC) 75 mg PO BID PRN (Reason: pain ) Qty: 14 0RF No Action albuterol sulfate 90 mcg/actuation HFA aerosol inhaler 2 inh INHALATION Q4H PRN (Reason: shortness of breath or wheezing) azithromycin 250 mg tablet 250 mg PO DAILY Rx Instructions: Started on 08/26/24 Print Language: Sinhala Instructions: Chest Pain (DC), Noncardiac Chest Pain (ED) Referrals: TANYA KLINE [Primary Care Provider] - 1 week
[2024-08-28 09:30] VITALS: BP 133/86; PULSE 75; O2SAT 94
[2024-08-28 09:30] LABS: HCG Qualitative NEGATIVE (NEGATIVE); Internal Control Within Normal Limits
[2024-08-28 09:33] LABS: Alanine Aminotransferase 28 U/L (14-59); Albumin Globulin Ratio 0.9; Albumin Level 3.5 g/dL (3.4-5.0); Alkaline Phosphatase 87 U/L (46-116); Anion Gap 18.6; Aspartate Amino Transferase 18 U/L (15-37); BUN Creatinine Ratio 9.9; Bilirubin Total 0.7 mg/dL (0.2-1.0); Calcium 8.7 mg/dL (8.5-10.1); Carbon Dioxide 23.5 mmol/L (21.0-32.0); Chloride 104 mmol/L (98-107); Estimated GFR (African America >60 (>=60 mL/min/1.73m^2); Estimated GFR (Non-African Ame >60 (>=60 mL/min/1.73m^2); Globulin 3.9 g/dL; Glucose 103 mg/dL (74-106); Potassium 4.1 mmol/L (3.5-5.1); Sodium 142 mmol/L (136-145); Total Protein 7.4 g/dL (6.4-8.2); Troponin I High Sensitivity 5.5 pg/mL (4.0-51.3)
[2024-08-28 09:35] LABS: D Dimer 0.43 mg/L FEU (<=0.59); Prothrombin Time 9.8 sec (9.0-11.6)
[2024-08-28] MEDS: FAMOTIDINE/PF 20 MG/2 ML VIAL IV (09:35)
[2024-08-28] MEDS: KETOROLAC TROMETHAMINE 30 MG/ML VIAL 15 MG IVP (09:36)
[2024-08-28 09:37] LABS: INR <0.93
[2024-08-28 10:00] VITALS: BP 134/87
== END 2024-08-28 10:07 | disposition home or self-care (01) ==
PROVIDERS: Emergency Provider Emergency Medicine; PCP Family Medicine
DX: R07.89 Other chest pain (principal); R07.81 Pleurodynia
CPT/HCPCS: 36415; 71045; 80053; 84484; 84703; 85025; 85378; 85610; 93005; 96374; 96375; 99285; J1885

== ENCOUNTER 2024-09-01 15:40 | Outpatient (OUT) | payer OTHER, SELFPAY ==
--- NOTE | 2024-09-01 15:42 | MM_ITS ---
Patient Name: JAIMIE HIGHTOWER MR#: [id number] : 1985 Exam Date: 09/01/2024 Ordering Doctor: NUHA Rushing . RADIOLOGY REPORT PROCEDURE: MM TOMOSYNTHESIS SCREENING BI COMPARISON: None. INDICATIONS: Screening Calculator Name NCI Breast Cancer Risk Assessment Tool 5 Year Breast Cancer Risk 0.70% Lifetime Breast Cancer Risk 12.10% Personal Breast Cancer No Personal Ovarian Cancer No Treatments None Family Cancers Grandfather-paternal with prostate cancer at age ~70. LOCATION: [facility] BREAST COMPOSITION: There are scattered areas of fibroglandular density. FINDINGS: DIAGNOSTIC CATEGORY 2--BENIGN FINDING: RIGHT BREAST: No significant suspicious finding. Scattered benign-appearing lymph nodes are present. LEFT BREAST: No significant suspicious finding. Scattered benign-appearing lymph nodes are present. RECOMMENDATIONS: ROUTINE MAMMOGRAM AND CLINICAL EVALUATION IN 12 MONTHS. PLEASE NOTE: A NORMAL MAMMOGRAM DOES NOT EXCLUDE THE POSSIBILITY OF BREAST CANCER. A CLINICALLY SUSPICIOUS PALPABLE LUMP SHOULD BE BIOPSIED. Dictated by: Raul Houston M.D. on 09/02/2024 at 11:32 Approved by: Raul Houston M.D. on 09/02/2024 at 11:35
--- OUTSIDE RECORDS SUMMARY | 2024-09-01 15:57 | XMS_ITS | CCD ---
Author Organization [facility] Care Team Providers Care Saw Maker Name Role Phone DR PAM KLINE Primary [...] Drug Class(es) Dates Sig (Normalized) Sig (Original) [id number] 200 actuat albuterol 0.09 mg/actuat metered dose [...] (COVID-19) RNA LEONOR+probe Ql (Unsp spec) - [facility] No Panel Informationon 08-12 FLU A - [facility] FLU B - [facility] iCoolhunt e Interpretation and review of laboratory results Normal [facility] CHEST 2 VIEWSon XR CHEST [...] <-Panic Low,>-Panic High,A-Abnormal,AA-Critical Abnormal Performed at: 01 =[address] [place] [address] Billie Cervantes MD, HPV APTIMA Negative Negative [facility] Health[facility] e Comment on above: This nucleic acid am plification test detects fourteen high- risk HPV types (16,18,31,33,35,39,45,51,52,56,58,59,66,68) without differentiation. Performed at: =[address] [id number] [employer]: Billie Cervantes MD, Phone: [phone] Performed at: [address] [place], [place] [id number] [employer]: Billie Cervantes MD, Phone: [phone] IGP, APTIMA HPV, RFX 16/18,45 Note . [facility] Comment on above: TESTS RESULT FLAG UN ITS REF RANGE LAB DIAGNOSIS: 02 NEGATIVE FOR INTRAEPITHELIAL LESION OR MALIGNANCY. CELLULAR CHANGES ASSOCIATED WITH INFLAMMATION ARE PRESENT. Specimen adequacy: 02 Satisfactory for evaluation. Endocervical and/or squamous metaplastic cells (endocervical component) are present. Performed by: 02 Venita Hart, Epitaxial Reactor Technician (ASCP) . 02 Note: Note 02 The [...] High,A-Abnormal,AA-Critical Abnormal Performed at: 02 [facility] [address] [place] [address] Billie Cervantes MD, BRUSH-SPATULA CERVIX [facility]IX [facility] 11-10-2022 S. pyogenes Org specific cx Ql (Throat) Positive [facility] 08-12-2022 S. pyogenes Org specific cx Ql (Throat) Negative [facility] Other [place] MARICRUZ DOP LEG RTon 04-24-20 [...] by: [place] VILLAR Date: 2022-04-24 16:31 Normal [facility] Vital Signs Date Time Vital Sign Value Performing Clinician Facility 08-12-2024 09:50-0400 Body height 163.8 cm Kay Ch NP Work Phone: [facility] 08-12-2024 09:50-0400 Body mass index (BMI) [Ratio] 38.97 kg/m2 Kay Ch NP Work Phone: [facility] 08-12-2024 09:50-0400 Body temperature 100.8 [degF] Kay Ch NP Work Phone: [facility] 08-12-2024 09:50-0400 Body weight 104.6 kg Kay Ch NP Work Phone: [facility] 08-12-2024 09:50-0400 Diastolic blood pressure 74 mm[Hg] Kay Ch NP Work Phone: [facility] 08-12-2024 09:50-0400 Heart rate 97 /min Kay Ch NP Work Phone: [facility] 08-12-2024 09:50-0400 SaO2% (BldA) [Mass fraction] 99 % Kay Ch NATURAL RESOURCES SPECIALIST Work Phone: [facility] 08-12-2024 09:50-0400 Systolic blood pressure 120 mm[Hg] Kay Ch NATURAL RESOURCES SPECIALIST Work Phone: [facility] 07-12-2024 10:34-0400 Body mass index (BMI) [Ratio] 39.21 kg/m2 Lizett Arevalo PA Work Phone: [facility] 07-12-2024 10:34-0400 Body weight 105.23 kg Lizett Arevalo PA Work Phone: [facility] 07-12-2024 10:34-0400 Diastolic blood pressure 80 mm[Hg] Lizett Arevalo PA Work Phone: [facility] 07-12-2024 10:34-0400 Systolic blood pressure 130 mm[Hg] Lizett Arevalo PA Work Phone: [facility] 11-10-2022 11:45-0500 Body height 162.56 cm Guadalupe Molina Other [facility] Other 11-10-2022 11:45-0500 Body mass index (BMI) [Ratio] 36.04 kg/m2 Guadalupe Molina Other [facility] Other 11-10-2022 11:45-0500 Body temperature 98.3 [degF] Guadalupe Tracy Other [facility] Other 11-10-2022 11:45-0500 Body weight 95.26 kg Guadalupe Tracy Other [facility] Other 11-10-2022 11:45-0500 Diastolic blood pressure 90 mm[Hg] Guadalupe Molina Other [facility] Other 11-10-2022 11:45-0500 Respiratory rate 18 /min Guadalupe Molina Other [facility] Other 11-10-2022 11:45-0500 SaO2% (BldA) [Mass fraction] 98 % Guadalupe Molina Other [facility] Other 11-10-2022 11:45-0500 Systolic blood pressure 147 mm[Hg] Guadalupe Molina Other [facility] Other 08-12-2022 17:15-0400 Body height 162.56 cm Padmini Marroquin Other [facility] 08-12-2022 17:15-0400 Body mass index (BMI) [Ratio] 36.04 kg/m2 Padmini Marroquin Other [facility] 08-12-2022 17:15-0400 Body temperature 97.1 [degF] Padmini Marroquin Other [facility] 08-12-2022 17:15-0400 Body weight 95.26 kg Padmini Marroquin Other [facility] Other 08-12-2022 17:15-0400 Respiratory rate 18 /min Padmini Marroquin Other [facility] 08-12-2022 17:15-0400 SaO2% (BldA) [Mass fraction] 99 % Padmini Marroquin Other [facility] Other Encounters Encounter Date Encounter Type Care Provider Facility Start: 08-12-2024 End: 08-12-2024 Clifford Ch NP Work Phone: [facility] Start: 08-12-2024 End: 08-12-2024 Bamboo flowsheet Kay Ch NATURAL RESOURCES SPECIALIST Work Phone: [facility] Start: 08-12-2024 End: 08-12-2024 ambulatory KAY CH Not Available Start: 08-12-2024 End: 08-12-2024 Office outpatient visit 15 minutes Kay Ch NATURAL RESOURCES SPECIALIST Work Phone: [facility] Comment on [...] Patient encounter procedure Lizett BREEN Work Phone: [facility] Start: 07-12-2024 End: 07-12-2024 Periodic preventive med est patient 40-64yrs Lizett BREEN Work Phone: [facility] Comment on above: Well woman exam with routine gynecological exam; Breast cancer screening by mammogram Start: 07-12-2024 End: 07-12-2024 ambulatory LIZETT AREVALO Not Available Start: 01-04-2024 End: 01-04-2024 ambulatory NO [facility] Not Available Start: 11-10-2022 End: 11-10-2022 ambulatory Guadalupe Molina Other [facility] Other Start: 11-10-2022 Office outpatient vi sit 25 minutes Guadalupe Molina [facility] Start: 08-12-2022 End: 08-12-2022 ambulatory Padmini Marroquin Other [place] [facility] Other Start: 08-12-2022 Office outpatient ne w 30 minutes Padmini Marroquin [facility] [place] Start: 04-24-2022 End: 04-24-[address] PAM KLINE Facility:[facility]1 Procedures Date Procedure Procedure Detail Performing Clinician Start: 08-12-2024 STATUS COVID-19/FLU Joselyn Ch NATURAL RESOURCES SPECIALIST Work Phone: Start: 07-12-2024 IGP,APTIMA HPV,AGE GDLN Lizett Kristan PA Work Phone: Start: 07-12-2024 Microscopic observat ion [Identifier] in Cervix by Cyto stain Kay Ch NATURAL RESOURCES SPECIALIST Work Phone: Plan of Treatment Date Care Activity Detail Author Start: 07-12-2027 Screening for malignant neoplasm of cervix [facility] Start: 08-12-2024 End: 08-12-2025 XR Chest 2 Views [facility] Work Phone: Comment on above: Expected: 08/12/2024 , Expires: 08/12/2025 Start: 08-12-2024 End: 08-12-2024 Patient encounter procedure 08/12/2024 10:00 AM EDT Office Visit [facility] [address] [place] [address] Kay Ch NP [address] [place] [address] Arrived [facility] Comment on above: Arrived Start: 07-12-2024 End: 09-11-2025 MG Breast - bilateral Screening Bilateral screening mammogram Imaging Routine Breast cancer screening by mammogram Expected: 07/12/2024 (Approximate), Expires: 09/11/2025 [facility] Work Phone: Comment on above: Expected: 07/12/2024 (Approximate), Expires: 09/11/2025 Start: 07-12-2024 End: 07-12-2024 Patient encounter procedure 07/12/2024 10:00 AM EDT Office Visit [facility] [address] [address] Lizett Arevalo PA [address] [place] [address] Arrived [facility] Comment on above: Arrived Start: 06-12-2024 Influenza vaccination Influenza Vacc ine (#1) [facility] Start: 2024 Screening for malignant neoplasm of breast Mammogram [facility] Start: 02-12-2014 Screening for malignant neoplasm of cervix [facility] Start: 02-12-2005 Screening for malignant neoplasm of cervix Pap Smear [facility] THIN PREP TIS PAP AN D HR HPV DNA THIN PREP TIS PAP AND HR HPV DNA Pathology and Cytology Routine Well woman exam with routine gynecological exam Ordered: 07/12/2024 [facility] Comment on above: Ordered: 07/12/2024 Immunizations Immunization Date Immunization Notes Care Provider Fa [facility] 09-02-2019 influenza, injectabl e, quadrivalent, contains preservative Lizett BREEN Work Phone: [facility] 09-02-2019 influenza virus vacc ine, unspecified formulation Lizett BREEN Work Phone: [facility] 07-02-2018 influenza, injectabl e, quadrivalent, contains preservative Lizett BREEN Work Phone: [facility] 08-26-2017 influenza, injectabl e, quadrivalent, preservative free Lizett BREEN Work Phone: [facility] 07-18-2016 influenza, injectabl e, quadrivalent, preservative free Lizett BREEN Work Phone: [facility] 06-15-2015 influenza, seasonal, injectable, preservative free Lizett BREEN Work Phone: [facility] 04-24-2015 tetanus toxoid, redu alice diphtheria toxoid, and acellular pertussis vaccine, adsorbed Lizett BREEN Work Phone: [facility] 07-20-2014 influenza, seasonal, injectable, preservative free Lizett BREEN Work Phone: [facility] Payers Date Payer Category Payer Managed Care HMO (unspecified) [id number] 1984 Unknown [id number] 1984 Unknown [id number] 1984 Unknown [id number] 1984 Unknown [id number] 1959 Private Health Insurance [id number] Social History Date Type Detail Facility Start: 01-04-2024 End: 08-12-2024 Sex Assigned At [facility] Start: 01-04-2024 Tobacco smoking stat [facility] Never smoked tobacco [facility] Start: 01-04-2024 [...] persisted since then. The cough is producing nooksack green phlegm. She reports feeling wheezy when [...] nursing note reviewed. Exam conducted with a patient support representative present. Vitals: Estimated body mass index is [...] was given to patient to schedule at [facility]. Pt also complains of a small hole [...] no improvement in 2 to 3 days. [facility] Other Evaluation note 08-12-2022 Note Date & [...] (suspected) exposure to covid-19 (ICD-10 - Z20.822) [facility] Other Clinical Note 06-17-2022 Note Date & Type Note Facility 06-17-2022 Note PROCEDURE: [facility] VCT 64, 5 mm slice axial images [...] signed by Polo Naylor on 06/17/2022 15[address] [facility] Retail Pharmacy Manager Evaluation note Note Date & Type Note Facility Evaluation note Diagnosis Well woman exam with routine gynecological exam Routine gynecological examination Breast cancer screening by mammogram documented in this encounter [facility] Evaluation note Note Date & Type Note Facility Evaluation note Diagnosis Acute cough- Primary documented in this encounter [facility] History general Narrative - Reported Note Date & Type Note Facility History general Narrative - Reported Type Surgical History eyes [facility] Other Summary Purpose Family History No Family History Records FoundNo Family History Records FoundNo Family History Records Found Advance Directives No Advanced Directives Records FoundNo Advanced Directives Records FoundNo Advanced Directives Records Found Additional Source Comments INFORMATION SOURCE (unrecogn ized section and content) DATE CREATED AUTHOR 05/01/2022 [facility] DATE CREATED AUTHOR AUTHOR'S ORGANIZ ATION 06/18/2022 [facility] dical Specialist DATE CREATED AUTHOR AUTHOR'S ORGANIZ ATION 08/17/2024 [facility] dical Specialists EPIC REASON FOR VISIT (unrecogniz ed section and content) Reason Comments Gynecologic Exam Reason Comments Cough Started Thursday nig ht, has wheezing. Care Teams (unrecognized sec tion and content) Saw Maker Relationship Specialty Start Date End Date Pam Kline MD [address] [facility] [address] PCP - General Family Medicine 02/17/23 Saw Maker Relationship Specialty Start Date End Date Pam Kline MD [address] [place] [address] PCP - General Family Medicine 02/17/23 Saw Maker Relationship Specialty Start Date End Date Pam Kline MD [address] [place] [address] PCP - General Family Medicine 02/17/23 Saw Maker Relationship Specialty Start Date End Date Pam Kline MD [address] [facility] [address] PCP - General Family Medicine 02/17/23 Saw Maker Relationship Specialty Start Date End Date Pam Kline MD [address] [facility] [address] PCP - General Family Medicine 02/17/23 FOR [...] BE BASED ON THE PRIMARY CLINICAL RECORDS. [employer] [facility]. provides no warranty or guarantee of the accuracy or completeness of information in this document.
== END 2024-09-01 15:41 | disposition home or self-care (01) ==
LOC: MAMMO 15:40
PROVIDERS: PCP Family Medicine; Visit Provider Physician Assistant
DX: Z12.31 Encounter for screening mammogram for malignant neoplasm of breast (principal); Z80.42 Family history of malignant neoplasm of prostate
CPT/HCPCS: 77063; 77067

== ENCOUNTER 2025-03-09 09:24 | Emergency (ER) | payer OTHER, SELFPAY ==
--- OUTSIDE RECORDS SUMMARY | 2025-03-08 12:30 | XMS_ITS | Encounter Summary ---
Author Organization [facility] Address [address] [facility] [place] [address] Care Team Providers Care Signal Maintainer Helper Name Role Phone Pam Armenta MD Primary Care Provider [phone] Reason for Visit * Reason Comments Fatigue Encounter Details Date Type Department Care Team (Latest Contact Info) Description 03/08/2025 12:30 PM EDT Office Visit [facility] [address] [place] [address] Lisa Rogers NP [address] [place] [address] Abdominal pain, unspecified abdominal location (Primary Dx); Chest pain, unspecified type; Other fatigue; Encounter for lipid screening for cardiovascular disease; Anxiety; Migraine without aura and without status migrainosus, not intractable (CMS/[facility]) Social History Tobacco Use Types Packs/Day Years Used Date Smoking Tobacco: Never Smokeless Tobacco: Never Tobacco Cessation:Counseling Given: Not Answered Alcohol Use Standard Drinks/Week Comments Not Currently 0 (1 standard drink = 0.6 oz pure alcohol) Caffeine intake: 1-2 cups per day coffee [id number] Health Literacy Answer Date Recor ded How often do you need to hav e someone help you when you read instructions, pamphlets, or other written material from your doctor or pharmacy? Never 03/08/2025 Humiliation, Afraid, Rape, and Kick questionnair e Answer Date Recorded Within the last year, have y ou been afraid of your partner or ex-partner? No 03/08/2025 Within the last year, have y ou been humiliated or emotionally abused in other ways by your partner or ex-partner? No Within the last year, have y ou been kicked, hit, slapped, or otherwise physically hurt by your partner or ex-partner? No 03/08/2025 Within the last year, have y ou been raped or forced to have any kind of sexual activity by your partner or ex-partner? No 03/08/2025 Social Connection and Isolat ion Panel [NHANES] Answer Date Recorded In a typical week, how many times do you talk on the phone with family, friends, or neighbors? More than three times a week 03/08/2025 How often do you get togethe r with friends or relatives? Once a week 03/08/2025 How often do you attend chur or buddhism services? More than 4 times per year 03/08/2025 Do you belong to any clubs o r organizations such as holiness groups, unions, fraternal or athletic groups, or school groups? Yes 03/08/2025 How often do you attend meet ings of the clubs or organizations you belong to? More than 4 times per year 03/08/2025 Are you , , di vorced, , never , or living with a partner? 03/08/2025 AUDIT-C Answer Date Recorded Q1: How often do you have a drink containing alc ohol? Monthly or less 03/08/2025 Q2: How many drinks containi ng alcohol do you have on a typical day when you are drinking? 1 or 2 03/08/2025 Q3: How often do you have si x or more drinks on one occasion? Never 03/08/2025 Overall Financial Resource Strain (CARDIA) Answe r Date Recorded How hard is it for you to pa y for the very basics like food, housing, medical care, and heating? Not hard at all 03/08/2025 [facility] [place] of Occupat ional Health - Occupational Stress Questionnaire Answer Date Recorded Do you feel stress - tense, restless, nervous, or anxious, or unable to sleep at night because your mind is troubled all the time - these days? Rather much 03/08/2025 Exercise Vital Sign Answer Date Recorde d On average, how many days pe r week do you engage in moderate to strenuous exercise (like a brisk walk)? 0 days 03/08/2025 On average, how many minutes do you engage in exercise at this level? 0 min 03/08/2025 Hunger Vital Sign Answer Date Recorded Within the past 12 months, y ou worried that your food would run out before you got the money to buy more. Never true 03/08/20 Within the past 12 months, t he food you bought just didn't last and you didn't have money to get more. Never true 03/08/2025 PRAPARE - Transportation Answer Date Re corded In the past 12 months, has l ack of transportation kept you from medical appointments or from getting medications? No 02/10 In the past 12 months, has l ack of transportation kept you from meetings, work, or from getting things needed for daily living? No 03/08/2025 Housing Stability Vital Sign Answer Danish e Recorded In the last 12 months, was t here a time when you were not able to pay the mortgage or rent on time? No 01/04/2024 In the last 12 months, how many places have you lived? 1 01/04/2024 In the last 12 months, was t here a time when you did not have a steady place to sleep or slept in a fpc (including now)? No 01/04/2024 Housing Stability Vital Sign Answer Danish e Recorded In the last 12 months, was t here a time when you were not able to pay the mortgage or rent on time? No 03/08/2025 In the past 12 months, how m any times have you moved where you were living? 0 03/08/2025 At any time in the past 12 m [facility], were you homeless or living in a fpc (including now)? No 03/08/2025 Comments No Sex and Gender Information Value Date Recorded Sex Assigned at Female 05/26/2023 6:44 AM EDT Legal Sex Female 7:06 PM EDT Gender Identity Female 05/26/2023 6:44 AM EDT Sexual Orientation Not on file documented as of this encounter Last Filed Vital Signs Vital Sign Reading Time Taken Comments Blood Pressure 126/70 03/08/2025 12:23 PM EDT Pulse 83 03/08/2025 12:23 PM EDT Temperature 36.3 C (97.3 F) 03/08/2025 12:23 PM EDT Respiratory Rate - - Oxygen Saturation 96% 03/08/2025 12:23 PM EDT Inhaled Oxygen Concentration - - Weight 105 kg (230 lb 6.4 oz) 03/08/2025 12:23 P M EDT Height - - Body Mass Index 38.94 08/12/2024 9:50 AM EDT documented in this encounter Functional Status * Audit-C Score Answer Date of Assessment Author 1 03/08/2025 10:26 AM EDT Mychart, Generic * Q1: How often do you have a drink containing alcohol? Answer Date of Assessment Author Monthly or less 03/08/2025 10:26 AM EDT Mychart, Generic * Q2: How many drinks containing alcohol do you have on a typical day when you are drinking? Answer Date of Assessment Author 1 or 2 03/08/2025 10:26 AM EDT Mychart, Generic * Q3: How often do you have six or more drinks on one occasion? Answer Date of Assessment Author Never 03/08/2025 10:26 AM EDT Mychart, Generic documented as of this encounter Progress Notes * Lisa Rogers, GRADY - 03/08/2025 12:30 PM EDT Images from the original note were not included. Meliza Mancini is a 40 y.o. female presents with chief complaint of No chief complaint on file. HPI: Last Thursday sx of extreme fatigue, lightheadedness, weakness, and tightness in chest. These sx come on and off with a total of 3 days of episodes. Fatigue Associated symptoms include fatigue. Pertinent negatives include no abdominal pain, arthralgias, chest pain, chills, coughing, numbness or sore throat. SUBJECTIVE: MEDICATIONS: ALLERGIES Current Outpatient Medications Medication Instructions Multiple Vitamin (MULTIVITAMIN ADULT PO) Multivitamin No Known Allergies PAST MEDICAL HISTORY: SOCIAL HISTORY SURGICAL HISTORY: Past Medical History: Diagnosis Date Cross eyed Gestational diabetes Social History Tobacco Use Smoking status: Never Smokeless tobacco: Never Vaping Use Vaping status: Never Used Substance Use Topics Alcohol use: Not Currently Comment: Caffeine intake: 1-2 cups per day coffee Drug use: Never Past Surgical History: Procedure Laterality Date CT ANGIOGRAM CHEST 12/13/2018 CT ANGIOGRAM CHEST [facility] DILATION AND CURETTAGE OF UTERUS 2011 EYE SURGERY Procedure:surgical repair;Disease:cross eyed REVIEW OF SYMPTOMS: Review of Systems Constitutional: Positive for fatigue. Negative for chills. HENT: Negative for ear discharge, ear pain, rhinorrhea and sore throat. Eyes: Negative for pain and redness. Respiratory: Negative for cough and chest tightness. Cardiovascular: Negative for chest pain and palpitations. Gastrointestinal: Negative for abdominal distention and abdominal pain. Genitourinary: Negative for difficulty urinating and frequency. Musculoskeletal: Negative for arthralgias and gait problem. Skin: Negative. Neurological: Negative for dizziness and numbness. Endocrine: Negative. Allergic/Immunologic: Negative. OBJECTIVE: Vitals: 03/08/25 1223 Temp: 97.3 ??F Physical Exam Vitals reviewed. Constitutional: Appearance: Normal appearance. HENT: Head: Normocephalic. Right Ear: Hearing and tympanic membrane normal. Left Ear: Hearing and tympanic membrane normal. Nose: Nose normal. Right Turbinates: Not enlarged. Left Turbinates: Not enlarged. Right Sinus: No maxillary sinus tenderness or frontal sinus tenderness. Left Sinus: No maxillary sinus tenderness or frontal sinus tenderness. Mouth/Throat: Lips: [place]. Mouth: Mucous membranes are moist. Pharynx: Oropharynx is clear. Uvula midline. Tonsils: No tonsillar exudate. Eyes: General: Lids are normal. Vision grossly intact. Gaze aligned appropriately. Extraocular Movements: Extraocular movements intact. Conjunctiva/sclera: Conjunctivae normal. Neck: Thyroid: No thyroid mass or thyromegaly. Vascular: No carotid bruit. Trachea: Trachea normal. Cardiovascular: Rate and Rhythm: Normal rate and regular rhythm. Pulses: Normal pulses. Heart sounds: Normal heart sounds. Pulmonary: Effort: Pulmonary effort is normal. Breath sounds: Normal breath sounds and air entry. Abdominal: General: Abdomen is flat. Bowel sounds are normal. Palpations: Abdomen is soft. Musculoskeletal: Cervical back: Full passive range of motion without pain, normal range of motion and neck supple. Lymphadenopathy: Cervical: No cervical adenopathy. Skin: General: Skin is warm. Capillary Refill: Capillary refill takes less than 2 seconds. Neurological: Mental Status: She is alert and oriented to person, place, and time. Sensory: Sensation is intact. Motor: Motor function is intact. Coordination: Coordination is intact. Psychiatric: Attention and Perception: Attention and perception normal. Mood and Affect: Mood and affect normal. Speech: Speech normal. Behavior: Behavior is cooperative. Thought Content: Thought content normal. ASSESSMENT AND PLAN: Assessment/Plan Diagnoses and all orders for this visit: Abdominal pain, unspecified abdominal location - POCT urinalysis dipstick manually resulted - Urine culture (clean catch); Future - POCT , urine Await results increase clear liquids Chest pain, unspecified type - ECG 12 lead; Future - XR chest 2 views; Future Patient will seek immediate medical attention if symptoms return or worsen. Other fatigue - TSH W/REFLEX TO FT4; Future Encounter for lipid screening for cardiovascular disease - Lipid panel; Future Anxiety - Comprehensive metabolic panel; Future Migraine without aura and without status migrainosus, not intractable (CMS/HCC)-stable. No follow-ups on file. documented in this encounter Plan of Treatment Scheduled Orders Name Type Priority Associated Diagnoses Orde r Schedule ECG 12 lead ECG Routine Chest pain, unspecified type Expected: 03/08/2025 (Approximate), Expires: 03/08/2026 Urine culture (clean catch) Microbiology Routine Abdominal pain, unspecified abdominal location Expected: 03/08/2025 (Approximate), Expires: 03/08/2026 documented as of this encounter Procedures Procedure Name Priority Date/Time Associated Diagnosis Comments POCT , URINE Routine 03/08/2025 12:54 PM EDT Abdominal pain, unspecified abdominal location POCT URINALYSIS DIPSTICK Routine 03/08/2025 12:54 PM EDT Abdominal pain, unspecified abdominal location TSH W/REFLEX TO FT4 Routine 03/08/2025 1 2:47 PM EDT Other fatigue LIPID PANEL Routine 03/08/2025 12:47 PM EDT Encounter for lipid screening for cardiovascular disease COMPREHENSIVE METABOLIC PANEL Routine 03/08/2025 12:47 PM EDT Anxiety documented in this encounter Results * XR chest 2 views (03/08/2025 1:07 PM EDT) Anatomical Region Laterality Modality Chest Radiographic Mica ging 03/08/2025 2:37 PM EDT Narrative 03/08/2025 2:37 PM EDT TITLE OF EXAM: XR CHEST 2 VIEWS REASON FOR EXAM: Chest tightness, fatigue for one month TECHNIQUE: Two radiographs of the chest. COMPARISON: Chest radiographs 08/12/2024 FINDINGS: Normal lung expansion. No diffuse or focal pulmonary abnormality. No significant effusion or pneumothorax. The cardiomediastinal silhouette is normal. No acute osseous or upper abdominal abnormality. IMPRESSION: No acute cardiopulmonary abnormality. DICTATED ON: 03/08/2025 12:27 PM This report has been electronically signed in approved by the interpreting radiologist. Procedure Note Tamy Naranjo MD - 03/08/2025 TITLE OF EXAM: XR CHEST 2 VIEWS REASON FOR EXAM: Chest tightness, fatigue for one month TECHNIQUE: Two radiographs of the chest. COMPARISON: Chest radiographs 08/12/2024 FINDINGS: Normal lung expansion. No diffuse or focal pulmonary abnormality. Nosignificant effusion or pneumothorax. The cardiomediastinal silhouette isnormal. No acute osseous or upper abdominal abnormality. IMPRESSION: No acute cardiopulmonary abnormality. DICTATED ON: 03/08/2025 12:27 PM This report has been electronically signed in approved by the interpretingradiologist. Lisa Rogers ICE CUTTER IMG XR PROCEDURES Final Result * POCT , urine (03/08/2025 12:54 PM EDT) Preg Test, Ur Negative Negative Urine 03/08/2025 12:5 4 PM EDT Lisa Rogers ICE CUTTER POINT OF CARE TEST ENTE R/EDIT ORDERABLES Final Result * (ABNORMAL) POCT urinalysis dipstick manually resulted (03/08/2025 12:54 PM EDT) Color, UA Light Yellow Clarity, UA Clear Glucose, UA Negative Negative - 2000(110) ++++ mg/dL Bilirubin, UA Negative Negative - 4(70) +++ mg/dL Ketones, UA Negative Negative - 160(16) ++++ mg/dL Spec Grav, UA 1.000 1 - 1.03 Blood, UA Negative Negative - 50 Alfredo/mcL pH, UA 5.0 5 - 9 Protein, UA Positive Negative - 2000(20) ++++ mg/dL Urobilinogen, UA 0.2 0.2 - 12 mg/dL Leukocytes, UA Positive Negative - 500+++ Michaela/mcL Nitrite, UA Negative Negative - Positive Urine 03/08/2025 12:5 4 PM EDT us Lisa Rogers NP POINT OF CARE TEST ENTE R/EDIT ORDERABLES Final Result * TSH W/REFLEX TO FT4 (03/08/2025 12:47 PM EDT) TSH W/REFLEX TO FT4 2.05 mIU/L [facility] Comment: Reference Range > or = 20 Years 0.40-4.50 Ranges First trimester 0.26-2.66 Second trimester 0.55-2.73 Third trimester 0.43-2.91 03/08/2025 12:4 7 PM EDT 03/08/2025 12:47 PM EDT Narrative Resulting Agency Comment Performing Organization Information Site ID: QPT Name: [employer] [facility] Address: [address] [place] [address], [address] [place] [id number] Director: Zack Barrios MD Lisa Rogers ICE CUTTER LAB BLOOD ORDERABLES Fi nal Result [facility] * (ABNORMAL) Lipid panel (03/08/2025 12:47 PM EDT) CHOLESTEROL, TOTAL 229(H) <200 mg/dL [facility] HDL CHOLESTEROL 45(L) > OR = 50 mg/dL [facility] TRIGLYCERIDES 189(H) <150 mg/dL [facility] LDL-CHOLESTEROL 151(H) mg/dL (calc) [facility] Comment: Reference range: <100 Desirable range <100 mg/dL for primary prevention; <70 mg/dL for patients with CHD or diabetic patients with > or = 2 CHD risk factors. LDL-C is now calculated using the Kasey calculation, which is a validated novel method providing better accuracy than the Friedewald equation in the estimation of LDL-C. Brenton ARRINGTON et al. ANNAMARIA. 2013;310(19): 2998-4074 (http://education.WEALTH at work.[employer]/faq/MJC546) CHOL/HDLC RATIO 5.1(H) <5.0 (calc) [facility] NON HDL CHOLESTEROL 184(H) <130 mg/dL (calc) [facility] Comment: For patients with diabetes plus 1 major ASCVD risk factor, treating to a non-HDL-C goal of <100 mg/dL (LDL-C of <70 mg/dL) is considered a therapeutic option. Blood Venous blood specimen / Unknown 03/08/2025 12:47 PM EDT 03/08/2025 12:47 PM EDT Narrative Resulting Agency Comment Performing Organization Information Site ID: QPT Name: [employer] [facility] Address: [address] [place] [address], [address] [place] [phone] Director: Zack Barrios MD Lisa Rogers NP LAB BLOOD ORDERABLES Fi nal Result [facility] * Comprehensive metabolic panel (03/08/2025 12:47 PM EDT) [facility] Glucose 92 65 - 99 mg/dL [facility] Comment: Fasting reference interval BUN 9 7 - 25 mg/dL [facility] Creatinine 0.64 0.50 - 0.99 mg/dL [facility] EGFR 114 > OR = 60 mL/min/1. 73m2 [facility] BUN/CREATININE RATIO SEE NOTE: 6 - 22 (calc) [facility] Comment: Not Reported: BUN and Creatinine are within reference range. Sodium 139 135 - 146 mmol/L [facility] Potassium, Bld 4.0 3.5 - 5.3 mmol/L [facility] Chloride 103 98 - 110 mmol/L [facility] Carbon Dioxide 27 20 - 32 mmol/L [facility] Calcium 8.9 8.6 - 10.2 mg/dL [facility] PROTEIN, TOTAL 7.1 6.1 - 8.1 g/dL [facility] ALBUMIN 4.4 3.6 - 5.1 g/dL [facility] GLOBULIN 2.7 1.9 - 3.7 g/dL (calc) [facility] ALBUMIN/GLOBULIN RATIO 1.6 1.0 - 2.5 (calc) [facility] BILIRUBIN, TOTAL 0.5 0.2 - 1.2 mg/dL [facility] ALKALINE PHOSPHATASE 86 31 - 125 U/L [facility] AST 15 10 - 30 U/L [facility] ALT 15 6 - 29 U/L [facility] Blood Venous blood specimen / Unknown 03/08/2025 12:47 PM EDT 03/08/2025 12:47 PM EDT Narrative Resulting Agency Comment Performing Organization Information Site ID: QPT Name: [facility] Address: [address] [place] [address], [address] [place] [phone] Director: Zack Barrios MD Lisa Rogers ICE CUTTER LAB BLOOD ORDERABLES Fi nal Result [facility] documented in this encounter Visit Diagnoses Diagnosis Abdominal pain, unspecified abdominal location- Primary Chest pain, unspecified type Other fatigue Encounter for lipid screening for cardiovascular disease Anxiety Anxiety state, unspecified Migraine without aura and without status migrainosus, not intractable (CMS/HCC) Chest pain, unspecified type documented in this encounter Care Teams Signal Maintainer Helper Relationship Specialty Start Date End Date Pam Armenta MD [address] [place] [address] PCP - General Family Medicine 02/17/23 documented as of this encounter
--- OUTSIDE RECORDS SUMMARY | 2025-03-08 13:00 | XMS_ITS | Encounter Summary ---
Author Organization [facility] Address [address] [place] [address] Care Team Providers Care Cafe Server Name Role Phone Pam Armenta MD Primary Care Provider [phone] Encounter Details Date Type Department Care Team (Latest Contact Info) Description 03/08/2025 1:00 PM EDT Ancillary Procedure [facility] [address] [place] [address] Chest pain, unspecified type Social History Tobacco Use Types Packs/Day Years Used Date Smoking Tobacco: Never Smokeless Tobacco: Never Alcohol Use Standard Drinks/Week Comments Not Currently [...] 03/08/2025 How often do you attend chur ch or oriental orthodox services? More than 4 times per year 03/08/2025 Do you belong to any clubs o r organizations such as jainism groups, unions, fraternal or athletic groups, or [...] and heating? Not hard at all 03/08/2025 [facility] of Occupat ional Health - Occupational Stress [...] money to buy more. Never true 03/08/20 25 Within the past 12 months, t he [...] place to sleep or slept in a [place] (including now)? No 01/04/2024 Housing Stability Vital Sign Answer Danish e Recorded In the last 12 months, was t here a time when you were not able to pay the mortgage or rent on time? No 03/08/2025 In the past 12 months, how m any times have you moved where you were living? 0 03/08/2025 At any time in the past [address] [facility], were you homeless or living in a [place] (including now)? No 03/08/2025 Comments No Sex and Gender Information Value Date Recorded Sex Assigned at Female 05/26/2023 6:44 AM EDT Legal Sex Female 7:06 PM EDT Gender Identity Female 05/26/2023 6:44 AM EDT Sexual Orientation Not on file documented as of this encounter Functional Status * Audit-C Score Answer Date of Assessment Author 1 03/08/2025 10:26 AM EDT Robertt, Generic * Q1: How often do you have a drink containing alcohol? Answer Date of Assessment Author Monthly or less 03/08/2025 10:26 AM EDT Mycbillyt, Generic * Q2: How many drinks containing alcohol do you have on a typical day when you are drinking? Answer Date of Assessment Author 1 or 2 03/08/2025 10:26 AM EDT Robertt, Generic * Q3: How often do you have six or more drinks on one occasion? Answer Date of Assessment Author Never 03/08/2025 10:26 AM EDT Robertt, Generic documented as of this encounter Plan of Treatment Not on file documented as of this encounter Procedures Procedure Name Priority Date/Time Associated Diagnosis Comments XR CHEST 2 VIEWS Routine 03/08/2025 1:07 PM EDT Chest pain, unspecified type documented in this encounter Results * XR [...] in approved by the interpretingradiologist. Lisa Rogers SPACE TECHNOLOGIST IMG XR PROCEDURES Final Result documented in this encounter Visit Diagnoses Diagnosis Chest pain, unspecified type documented in this encounter Care Teams Cafe Server Relationship Specialty Start Date End Date Pam Armenta MD [address] [place] [address] PCP - General Family Medicine 02/17/23 documented as of this encounter
--- OUTSIDE RECORDS SUMMARY | 2025-03-08 13:56 | XMS_ITS | Encounter Summary ---
Author Organization [facility] tem Address [id number] [address] [place] [address] Care Team Providers Care Test Engine Mechanic Name Role Phone Lisa Rogers Primary Care Pro vider Reason for Referral * Cardiology (Routine) - Closed Specialty Diagnoses / Procedures Referred By Khalif lara Referred To Contact Diagnoses Chest pain, unspecified type Procedures ECG 12 lead Lisa Rogers APRN-CNP [address] [place] [address] Phone: tel: fax: Referral ID Status Reason Start Date Expiration Date Visits Re quested Visits Authorized [id number] Closed 03/08/2025 03/08/2026 1 1 Reason for Visit * Cardiology (Routine) - Closed Specialty Diagnoses / Procedures Referred By Contac marco Referred To Contact Diagnoses Chest pain, unspecified type Procedures ECG 12 lead Lisa Rogers APRN-CNP [address] [place] [address] Phone: tel: fax: Referral ID Status Reason Start Date Expiration Date Visits Re quested Visits Authorized [id number] Closed 03/08/2025 03/08/2026 1 1 Encounter Details Date Type Department Care Team (Latest Contact Info) Description 03/08/2025 1:56 PM EDT - 03/08/2025 11:59 PM EDT Hospital Encounter [facility] - Cardiovascular [address] [place] [address] Chest pain, unspecified type Discharge Disposition: Home Social History Tobacco Use Types Packs/Day Years Used Date Smoking Tobacco: Never Assessed Comments Unknown Sex and Gender Information Value Date Recorded Sex Assigned at Not on file Legal Sex Female 1:13 PM EDT Gender Identity Not on file Sexual Orientation Not on file documented as of this encounter Plan of Treatment Not on file documented as of this encounter Procedures Procedure Name Priority Date/Time Associated Diagnosis Comments ECG 12-LEAD Routine 03/08/2025 2:01 PM EDT Chest pain, unspecified type documented in this encounter Results * ECG 12 lead (03/08/2025 2:01 PM EDT) 03/08/2025 2:01 PM EDT Narrative TRACEMASTERVUE - 03/08/2025 3:40 PM EDT us Lisa RENTERIA ECG ORDERABLES F inal Result TRACEMASTERVUE documented in this encounter Visit Diagnoses Diagnosis Chest pain, unspecified type documented in this encounter Care Teams Test Engine Mechanic Relationship Specialty Start Date End Date Lisa Rogers APRN-CNP [address] [place] [address] PCP - General Internal Medicine 03/08/25 documented as of this encounter
[2025-03-09] VITALS (14 sets, daily range): BP systolic 122–168; BP diastolic 84–111; PULSE 81–96; TEMP 36.8; O2SAT 93–97; BMI 37.8
--- OUTSIDE RECORDS SUMMARY | 2025-03-09 09:32 | XMS_ITS | Encounter Summary ---
Author Organization [facility] Address [address] [facility] [place] [address] Care Team Providers Care Java Sdet Name Role Phone Pam Armenta MD Primary Care Provider [phone] Encounter Details Date Type Department Care Team (Latest Contact Info) Description 03/08/2025 Travel Social History Tobacco Use Types Packs/Day Years [...] week 03/08/2025 How often do you attend [facility] or mu-ism services? More than 4 times per year 03/08/2025 Do you belong to any clubs o r organizations such as congregation groups, unions, fraternal or athletic groups, or [...] and heating? Not hard at all 03/08/2025 [facility] Occupat ional Health - Occupational Stress [...] place to sleep or slept in a assisted (including now)? No 01/04/2024 Housing Stability Vital Sign Answer Danish e Recorded In the last 12 months, was t here a time when you were not able to pay the mortgage or rent on time? No 03/08/2025 In the past 12 months, how m any times have you moved where you were living? 0 03/08/2025 At any time in the past 12 m [facility], were you homeless or living in a assisted (including now)? No 03/08/2025 Comments No Sex [...] Mychart, Generic documented as of this encounter Plan of Treatment Not on file documented as of this encounter Visit Diagnoses Not on filedocumented in this encounter Care Teams Java Sdet Relationship Specialty Start Date End Date Pam Armenta MD [address] [place] [address] PCP - General Family Medicine 02/17/23 documented as of this encounter
--- OUTSIDE RECORDS SUMMARY | 2025-03-09 09:32 | XMS_ITS | Clinical Summary ---
Author Organization [facility] tem Address [id number] [address] [place] [address] Care Team Providers Care Repairer Cylinder Heads Name Role Phone Sue Lisa Mary ARNOLDN-HONEY PROCESSOR Primary Care Pro vider Encounters Date Type Department Care Team Description 03/08/2025 1:56 PM EDT - 03/08/2025 11:59 PM EDT Hospital Encounter [facility] - Cardiovascular [address] [place] [id number] Chest pain, unspecified type Discharge Disposition: Home 03/08/2025 Travel from Last 3 Months Social History Tobacco Use Types Packs/Day Years Used Date Smoking Tobacco: Never Assessed Comments Unknown Sex and Gender Information Value Date Recorded Sex Assigned at Not on file Legal Sex Female 1:13 PM EDT Gender Identity Not on file Sexual Orientation Not on file Plan of Treatment Health Maintenance Due Date Last Done Comments Depression Screening 1996 Tobacco Screening 1996 Adult BMI Screening 02/12/2002 DTaP,Tdap and Td Vaccines (2 - Td or Tdap) 04/24/2025 04/24/2015 Influenza Vaccine 06/12/2025 09/02/2019, , 08/26/2017, Additional history exists Pap Smear 07/12/2027 07/12/2024 Medical Devices Not on file Procedures Procedure Name Priority Date/Time Associated Diagnosis Comments ECG 12-LEAD Routine 03/08/2025 2:01 PM EDT Chest pain, unspecified type from Last 3 Months Results * ECG 12 lead (03/08/2025 2:01 PM EDT) 03/08/2025 2:01 PM EDT Narrative TRACEMASTERVUE - 03/08/2025 3:40 PM EDT Lisa RENTERIA ECG ORDERABLES F inal Result TRACEMASTERVUE from Last 3 Months Insurance [employer] Care Teams Repairer Cylinder Heads Relationship Specialty Start Date End Date Lisa Rogers APRN-CNP [address] [place] [address] PCP - General Internal Medicine 03/08/25
--- OUTSIDE RECORDS SUMMARY | 2025-03-09 09:32 | XMS_ITS | Encounter Summary ---
Author Organization [email or web address] tem Address [facility] [id number] [address] [place] [address] Care Team Providers Care Bonded Structures Repairer Name Role Phone Lisa Rogers Primary Care Pro vider Encounter Details Date Type Department Care Team [...] on filedocumented in this encounter Care Teams Bonded Structures Repairer Relationship Specialty Start Date End Date Lisa Rogers APRN-CNP [address] [place] [address] PCP - General Internal Medicine 03/08/25 documented as of this encounter
--- OUTSIDE RECORDS SUMMARY | 2025-03-09 09:32 | XMS_ITS | Clinical Summary ---
Author Organization [facility] Address [address] [facility] [place] [address] Care Team Providers Care Operator Maintainer Name Role Phone Pam Kline MD Primary Care Provider [phone] Allergies No known active allergies Medications Multiple Vitamin (MULTIVITAMIN ADULT PO) Multivitamin Active ibuprofen 200 MG tablet Take by mouth 025 Discontinued albuterol HFA 90 mcg/act inhalerIndicat ions:Acute cough Inhale 2 puffs every 4 (four) hours if needed for wheezing 18 g 08/12/20 24 025 Discontinued diclofenac (Voltaren) 75 MG EC tablet Take 75 mg by mouth 2 (two) times a day as needed 08/28/20 025 Discontinued famotidine (Pepcid) 20 MG tablet Take 20 mg by mouth in the morning and 20 mg before bedtime. 08/28/20 24 025 Discontinued Active Problems Problem Noted Date Diagnosed Date Anxiety 01/04/2024 Atypical mole 01/04/2024 Migraine without aura and wi thout status migrainosus, not intractable 01/04/2024 Other headache syndrome 01/04/2024 Skin tag 01/04/2024 Encounters Date Type Department Care Team Description 03/08/2025 1:00 PM EDT Ancillary Procedure [facility] [address] [place] [address] Chest pain, unspecified type 03/08/2025 12:30 PM EDT Office Visit [facility] [address] [facility] [place] [address] Lisa Rogers NP Abdominal pain, unspecified abdominal location (Primary Dx); Chest pain, unspecified type; Other fatigue; Encounter for lipid screening for cardiovascular disease; Anxiety; Migraine without aura and without status migrainosus, not intractable ([facility]) 03/08/2025 Results Follow-Up [facility] [address] [facility] [place] [address] Lisa Rogers NP 03/08/2025 Bamboo flowsheet [facility] [address] [facility] [place] [address] Lisa Rogers NP 03/08/2025 Travel 12/30/2024 Telephone [facility] [address] [facility] [place] [address] Nika Blunt MA from Last 3 Months Immunizations Immunization Administration Dates Next Due Influenza, injectable, quadrivalent 09/02/2019,0 07/02/2018 Influenza, injectable, quadrivalent, preservativ e free 08/26/2017,07/18/2016 Influenza, seasonal, injectable, preservative fr ee 06/15/2015,07/20/2014 Tdap 04/24/2015 Family History Relation Name Status Comments Brother x1 Daughter x2 Father Alive Mother Alive Sister x2 Social History Tobacco Use Types Packs/Day Years [...] How often do you attend chur or oriental orthodox services? More than 4 times per year 03/08/2025 Do you belong to any clubs o r organizations such as yazidism groups, unions, fraternal or athletic groups, or [...] and heating? Not hard at all 03/08/2025 [facility] Occupat ional Health - Occupational Stress [...] place to sleep or slept in a chcf (including now)? No 01/04/2024 Housing Stability Vital Sign Answer Danish e Recorded In the last 12 months, was t here a time when you were not able to pay the mortgage or rent on time? No 03/08/2025 In the past 12 months, how m any times have you moved where you were living? 0 03/08/2025 At any time in the past 12 m [facility], were you homeless or living in a chcf (including now)? No 03/08/2025 Comments No Sex and Gender Information Value Date Recorded Sex Assigned at Female 05/26/2023 6:44 AM EDT Legal Sex Female 7:06 PM EDT Gender Identity Female 05/26/2023 6:44 AM EDT Sexual Orientation Not on file Last Filed Vital Signs Vital Sign Reading Time Taken Comments Blood Pressure 126/70 03/08/2025 12:23 PM EDT Pulse 83 03/08/2025 12:23 PM EDT Temperature 36.3 C (97.3 F) 03/08/2025 12:23 PM EDT Respiratory Rate - - Oxygen Saturation 96% 03/08/2025 12:23 PM EDT Inhaled Oxygen Concentration - - Weight 105 kg (230 lb 6.4 oz) 03/08/2025 12:23 P M EDT Height 163.8 cm (5' 4.5 ) 08/12/2024 9:50 AM EDT Body Mass Index 38.94 08/12/2024 9:50 AM EDT Plan of Treatment Health Maintenance Due Date Last Done Comments HPV/Cotest 02/12/2014 Influenza Vaccine (Season Ended) 2025 09/02/2019, 07/02/2018, 08/26/2017, Additional history exists Mammogram 09/02/2025 09/02/2024 Cervical Cancer Screening 07/12/2027 Pap Smear 07/12/2027 07/12/2024 Procedures Procedure Name Priority Date/Time Associated Diagnosis Comments XR CHEST 2 VIEWS Routine 03/08/2025 1:07 PM EDT Chest pain, unspecified type POCT , URINE Routine 03/08/2025 12:54 PM EDT Abdominal pain, unspecified abdominal location POCT URINALYSIS DIPSTICK Routine 03/08/2025 12:54 PM EDT Abdominal pain, unspecified abdominal location TSH W/REFLEX TO FT4 Routine 03/08/2025 1 2:47 PM EDT Other fatigue LIPID PANEL Routine 03/08/2025 12:47 PM EDT Encounter for lipid screening for cardiovascular disease COMPREHENSIVE METABOLIC PANEL Routine 03/08/2025 12:47 PM EDT Anxiety MM TOMOSYNTHESIS SCREENING BI 09/02/2024 11:35 AM EST PAP SMEAR Routine 07/12/2024 12:00 AM EDT from Last 3 Months or Most Recently Relevant to Health Maintenance Results * XR chest 2 views (03/08/2025 [...] in approved by the interpretingradiologist. Lisa Rogers STALLION KEEPER IMG XR PROCEDURES Final Result * POCT , urine (03/08/2025 12:54 PM EDT) Preg Test, Ur Negative Negative Urine 03/08/2025 12:5 4 PM EDT Lisa Rogers STALLION KEEPER POINT OF CARE TEST ENTE R/EDIT ORDERABLES [...] Positive Urine 03/08/2025 12:5 4 PM EDT iLsa Rogers NP POINT OF CARE TEST ENTE [...] Performing Organization Information Site ID: QPT Name: [facility] Address: [address] [place] [address], [address] [place] [phone] Director: Zack Barrios MD Lisa Rogers NP [...] equation in the estimation of LDL-C. Brenton SS et al. ANNAMARIA. 2013;310(19): 1182-3565 (http://education.Handy.Evident.io/faq/FDW792) CHOL/HDLC RATIO 5.1(H) <5.0 (calc) [facility] NON [...] Performing Organization Information Site ID: QPT Name: [facility] Address: [address] [place] [address], [address] [place] [phone] Director: Zack Barrios MD Lisa Rogers STALLION KEEPER LAB BLOOD ORDERABLES Fi nal Result [facility] * Comprehensive metabolic panel (03/08/2025 12:47 PM EDT) [facility] Glucose 92 65 - 99 mg/dL [facility] [...] Performing Organization Information Site ID: QPT Name: [facility] Address: [address] [place] [address], [address] [place] [phone] Director: Zack Barrios MD us Lisa Rogers STALLION KEEPER LAB BLOOD ORDERABLES Fi nal Result [facility] * MM TOMOSYNTHESIS SCREENING BI (09/02/2024 11:35 AM EST) Anatomical Region Laterality Modality Other 09/02/2024 11:3 5 AM EST Narrative 09/02/2024 11:36 [place] [address] Mammography Report Signed Patient: MELIZA MANCINI MR#: [id number] : 1985 Acct:[id number] Age/Sex: 39 / F ADM Date: 09/01/24 Loc: MAMMO Attending Dr: Lizett Rushing Ordering Physician: Lizett Rushing Results: Date of Service: 09/01/24 Follow Up: Procedure(s): MM tomosynthesis screening BI Accession Number(s): [id number] cc: Lizett Rushing; PAM KLINE Patient Name: MELIZA MANCINI MR#: [id number] : 1985 Exam Date: 09/01/2024 Ordering Doctor: NUHA Rushing . RADIOLOGY REPORT PROCEDURE: MM TOMOSYNTHESIS SCREENING BI COMPARISON: None. INDICATIONS: Screening Calculator Name NCI Breast Cancer Risk Assessment Tool 5 Year Breast Cancer Risk 0.70% Lifetime Breast Cancer Risk 12.10% Personal Breast Cancer No Personal Ovarian Cancer No Treatments None Family Cancers Grandfather-paternal with prostate cancer at age 70. LOCATION: [facility] BREAST COMPOSITION: There are scattered areas of fibroglandular density. FINDINGS: DIAGNOSTIC CATEGORY 2--BENIGN FINDING: RIGHT BREAST: No significant suspicious finding. Scattered benign-appearing lymph nodes are present. LEFT BREAST: No significant suspicious finding. Scattered benign-appearing lymph nodes are present. RECOMMENDATIONS: ROUTINE MAMMOGRAM AND CLINICAL EVALUATION IN 12 MONTHS. PLEASE NOTE: A NORMAL MAMMOGRAM DOES NOT EXCLUDE THE POSSIBILITY OF BREAST CANCER. A CLINICALLY SUSPICIOUS PALPABLE LUMP SHOULD BE BIOPSIED. Dictated by: Raul Houston M.D. on 09/02/2024 at 11:32 Approved by: Raul Houston M.D. on 09/02/2024 at 11:35 Dictated By: Raul Houston M.D. Signed By: 09/02/24 1136 DD/ 1135 TD/TT: Edger Technician: Procedure Note Radiology, Radiologist, MD - 09/02/2024 [place] [address] Mammography Report Signed Patient: MELIZA MANCINI KMR#: [id number] : 1985Acct:[id number] Age/Sex: 39 / FADM Date: 09/01/24 Loc: MAMMO Attending Dr: Lizett Rushing Ordering Physician: Lizett RushingResults: Date of Service: 09/01/24Follow Up: Procedure(s): MM tomosynthesis screening BI Accession Number(s): [id number] cc: Lizett Rushing; PAM KLINE Patient Name: MELIZA MANCINI MR#: [id number] : 1985 Exam Date: 09/01/2024 Ordering Doctor: NUHA Rushing . RADIOLOGY REPORT PROCEDURE: MM TOMOSYNTHESIS SCREENING BI COMPARISON: None. INDICATIONS: Screening Calculator Name NCI Breast Cancer Risk Assessment Tool 5 Year Breast Cancer Risk 0.70% Lifetime Breast Cancer Risk 12.10% Personal Breast Cancer No Personal Ovarian Cancer No Treatments None Family Cancers Grandfather-paternal with prostate cancer at age 70. LOCATION: [facility] BREAST COMPOSITION: There are scattered areas of fibroglandulardensity. FINDINGS: DIAGNOSTIC CATEGORY 2--BENIGN FINDING: RIGHT BREAST: No significant suspicious finding. Scatteredbenign-appearing lymph nodes are present. LEFT BREAST: No significant suspicious finding. Scatteredbenign-appearing lymph nodes are present. RECOMMENDATIONS: ROUTINE MAMMOGRAM AND CLINICAL EVALUATION IN 12 MONTHS. PLEASE NOTE: A NORMAL MAMMOGRAM DOES NOT EXCLUDE THE POSSIBILITY OFBREAST CANCER. A CLINICALLY SUSPICIOUS PALPABLE LUMP SHOULD BE BIOPSIED. Dictated by: Raul Houston M.D. on 09/02/2024 at 11:32 Approved by: Raul Houston M.D. on 09/02/2024 at 11:35 Dictated By: Raul Houston M.D. Signed By:09/02/24 1136 DD/ 1135 TD/TT: Edger Technician: us Generic External Data Provider [facility] Final Result * Pap Smear (07/12/2024 12:00 AM EDT) Swab Cervical swab / Unknown us Lizett BREEN LAB CYTOLOGY ORDERABLES Final Re sult EXTERNAL LAB from Last 3 Months or Most Recently Relevant to Health Maintenance Insurance [employer] Care Teams Operator Maintainer Relationship Specialty Start Date End Date Pam Kline MD [address] [place] [address] PCP - General Family Medicine 02/17/23
--- OUTSIDE RECORDS SUMMARY | 2025-03-09 09:32 | XMS_ITS | Encounter Summary ---
Author Organization [facility] Address [address] [place] [address] Care Team Providers Care Prestidigitator Name Role Phone Pam Armenta MD Primary Care Provider [phone] Encounter Details Date Type Department Care Team (Late st Contact Info) Description 03/08/2025 Bamboo flowsheet [facility] [address] [place] [address] Lisa Rogers NP [address] [place] [address] Social History Tobacco Use Types Packs/Day Years [...] often do you attend chur ch or jain services? More than 4 times per year 03/08/2025 Do you belong to any clubs o r organizations such as voodoo groups, unions, fraternal or athletic groups, or [...] and heating? Not hard at all 03/08/2025 [facility] - Occupational Stress Questionnaire Answer Date [...] place to sleep or slept in a detention (including now)? No 01/04/2024 Housing Stability Vital Sign Answer Danish e Recorded In the last 12 months, was t here a time when you were not able to pay the mortgage or rent on time? No 03/08/2025 In the past 12 months, how m any times have you moved where you were living? 0 03/08/2025 At any time in the past 12 m [facility], were you homeless or living in a detention (including now)? No 03/08/2025 Comments No Sex and Gender Information Value Date Recorded Sex Assigned at Female 05/26/2023 6:44 AM EDT Legal Sex Female 7:06 PM EDT Gender Identity Female 05/26/2023 6:44 AM EDT Sexual Orientation Not on file documented as of this encounter Functional Status * Audit-C Score Answer Date of Assessment Author 1 03/08/2025 10:26 AM EDT Angelito, Generic * Q1: How often do you have a drink containing alcohol? Answer Date of Assessment Author Monthly or less 03/08/2025 10:26 AM EDT Angelito, Generic * Q2: How many drinks containing alcohol do you have on a typical day when you are drinking? Answer Date of Assessment Author 1 or 2 03/08/2025 10:26 AM EDT Angelito, Generic * Q3: How often do you have six or more drinks on one occasion? Answer Date of Assessment Author Never 03/08/2025 10:26 AM EDT Mychart, Generic documented as of this encounter Plan of Treatment Not on file documented as of this encounter Visit Diagnoses Not on filedocumented in this encounter Care Teams Prestidigitator Relationship Specialty Start Date End Date Pam Armenta MD [address] [place] [address] PCP - General Family Medicine 02/17/23 documented as of this encounter
--- OUTSIDE RECORDS SUMMARY | 2025-03-09 09:32 | XMS_ITS | Encounter Summary ---
Author Organization [facility] Address [address] [facility] [place] [address] Care Team Providers Care Commercial Lending Assistant Name Role Phone Pam Armenta MD Primary Care Provider [phone] Encounter Details Date Type Department Care Team (Late st Contact Info) Description 03/08/2025 Results Follow-Up [facility] [address] [place] [address] Lisa Rogers NP [address] [place] [address] Social History Tobacco Use Types [...] often do you attend chur ch or taoist services? More than 4 times per year 03/08/2025 Do you belong to any clubs o r organizations such as rastafari groups, unions, fraternal or athletic groups, or [...] and heating? Not hard at all 03/08/2025 [facility] of Occupat ional Health - Occupational [...] any time in the past 12 m [facility], were you homeless or living in [...] Mychart, Generic documented as of this encounter Miscellaneous Notes * Telephone Encounter - Pam Antunez MA - 03/08/2025 4:21 PM EDT Spoke with pt and she voices understanding. She asked about her urine I told her we sent it for culture. * Telephone Encounter - Pam Antunez MA - 03/08/2025 4:21 PM EDT ----- Message from Lisa Rogers sent at 03/08/2025 3:17 PM EDT ----- Let patient know her chest xray was negative ----- Message ----- From: Interface,Incoming Img Aat Sent: 03/08/2025 2:37 PM EDT To: Lisa Rogers NP * Result Encounter Note - Lisa Rogers NP - 03/08/2025 3:17 PM EDT Let patient know her chest xray was negative documented in this encounter Plan of Treatment Not on file documented as of this encounter Visit Diagnoses Not on filedocumented in this encounter Care Teams Commercial Lending Assistant Relationship Specialty Start Date End Date Pam Armenta MD [address] [place] [address] PCP - General Family Medicine 02/17/23 documented as of this encounter
--- OUTSIDE RECORDS SUMMARY | 2025-03-09 09:33 | XMS_ITS | Encounter Summary ---
Author Organization [facility] Address [address] [facility] [place] [address] Care Team Providers Care Head Bucker Name Role Phone Tanya Kline MD Primary Care Provider [phone] Encounter Details Date Type Department Care Team (Late st Contact Info) Description 09/02/2024 Clinisync Result Encounter [facility] External Department Unsolicited Provider, Generic External Data Social History Tobacco Use Types Packs/Day Years Used Date Smoking Tobacco: Never Smokeless Tobacco: Never Alcohol Use Standard Drinks/Week Comments Not Currently 0 (1 standard drink = 0.6 oz pure alcohol) Caffeine intake: 1-2 cups per day coffee Social Connection and Isolation Panel [NHANES] A nswer Date Recorded In a typical week, how many times do you talk on the phone with family, friends, or neighbors? Patient declined 01/04/2024 How often do you get togethe r with friends or relatives? Patient declined 01/04/2024 How often do you attend restoration or anabaptism serv ices? Patient declined 01/04/2024 Do you belong to any clubs o r organizations such as restoration groups, unions, fraternal or athletic groups, or school groups? Patient declined 01/04/2024 How often do you attend meet ings of the clubs or organizations you belong to? Patient declined 01/04/2024 Are you , , di vorced, , never , or living with a partner? 01/04/2024 AUDIT-C Answer Date Recorded Q1: How often do you have a drink containing alcohol? Never 01/04/2024 Q2: How many drinks containi ng alcohol do you have on a typical day when you are drinking? Patient does not drink Q3: How often do you have si x or more drinks on one occasion? Never 01/04/2024 Overall Financial Resource Strain (CARDIA) Answe r Date Recorded How hard is it for you to pa y for the very basics like food, housing, medical care, and heating? Patient declined 01/04/2024 [facility] - Occupational Stress Questionnaire Answer Date Recorded Do you feel stress - tense, restless, nervous, or anxious, or unable to sleep at night because your mind is troubled all the time - these days? Patient declined 01/04/2024 Exercise Vital Sign Answer Date Recorde d On average, how many days pe r week do you engage in moderate to strenuous exercise (like a brisk walk)? Patient declined On average, how many minutes do you engage in exercise at this level? Patient declined 01/04/2024 Hunger Vital Sign Answer Date Recorded Within the past 12 months, y ou worried that your food would run out before you got the money to buy more. Patient declined Within the past 12 months, t he food you bought just didn't last and you didn't have money to get more. Patient declined PRAPARE - Transportation Answer Date Re corded In the past 12 months, has l ack of transportation kept you from medical appointments or from getting medications? Patient declined 01/04/2024 In the past 12 months, has l ack of transportation kept you from meetings, work, or from getting things needed for daily living? Patient declined 01/04/2024 Housing Stability Vital Sign Answer Danish [...] place to sleep or slept in a penitentiary (including now)? No 01/04/2024 Comments No Sex and Gender Information Value Date Recorded Sex Assigned at Female 05/26/2023 6:44 AM EDT Legal Sex Female 7:06 PM EDT Gender Identity Female 05/26/2023 6:44 AM EDT Sexual Orientation Not on file documented as of this encounter Plan of Treatment Not on file documented as of this encounter Procedures Procedure Name Priority Date/Time Associated Diagnosis Comments MM JOYCEOSYNTHESIS SCREENING BI 09/02/2024 11:35 AM EST documented in this encounter Results * MM TOMOSYNTHESIS SCREENING BI (09/02/2024 11:35 AM EST) Anatomical Region Laterality Modality Other 09/02/2024 11:3 5 AM EST Narrative 09/02/2024 11:36 [place] [address] Mammography Report Signed Patient: MELIZA MANCINI MR#: [id number] : 1985 Acct:[id number] Age/Sex: 39 / F ADM Date: 09/01/24 Loc: MAMMO Attending Dr: Lizett Rushing Ordering Physician: Lizett Rushing Results: Date of Service: 09/01/24 Follow Up: Procedure(s): MM tomosynthesis screening BI Accession Number(s): [id number] cc: Lizett Rushing; TANYA KLINE Patient Name: MELIZA MANCINI MR#: [id number] : 1985 Exam Date: 09/01/2024 Ordering Doctor: NUHA Rushing . RADIOLOGY REPORT PROCEDURE: MM TOMOSYNTHESIS SCREENING BI COMPARISON: None. INDICATIONS: Screening Calculator Name NCI Breast Cancer Risk Assessment Tool 5 Year Breast Cancer Risk 0.70% Lifetime Breast Cancer Risk 12.10% Personal Breast Cancer No Personal Ovarian Cancer No Treatments None Family Cancers Grandfather-paternal with prostate cancer at age 70. LOCATION: [facility] BREAST COMPOSITION: There are scattered areas of [...] Signed By: 09/02/24 1136 DD/ 1135 TD/TT: Nutrition Associate: Procedure Note Radiology, Radiologist, MD - 09/02/2024 [place] [address] Mammography Report Signed Patient: MELIZA MANCINI KMR#: [id number] : 1985Acct:[id number] Age/Sex: 39 / FADM Date: 09/01/24 Loc: MAMMO Attending Dr: Lizett Rushing Ordering Physician: Lizett Bhattults: Date of Service: 09/01/24Follow Up: Procedure(s): MM tomosynthesis screening BI Accession Number(s): [id number] cc: Lizett Rushing; TANYA KLINE Patient Name: MELIZA MANCINI MR#: [id number] : 1985 Exam Date: 09/01/2024 Ordering Doctor: NUHA Rushing . RADIOLOGY REPORT PROCEDURE: MM TOMOSYNTHESIS SCREENING BI COMPARISON: None. INDICATIONS: Screening Calculator Name NCI Breast Cancer Risk Assessment Tool 5 Year Breast Cancer Risk 0.70% Lifetime Breast Cancer Risk 12.10% Personal Breast Cancer No Personal Ovarian Cancer No Treatments None Family Cancers Grandfather-paternal with prostate cancer at age 70. LOCATION: [facility] BREAST COMPOSITION: There are scattered areas of [...] M.D. Signed By:09/02/24 1136 DD/ 1135 TD/TT: Nutrition Associate: us Generic External Data Provider [facility] Final Result documented in this encounter Visit Diagnoses Not on filedocumented in this encounter Care Teams Head Bucker Relationship Specialty Start Date End Date Tanya Kline MD [address] [place] [address] PCP - General Family Medicine 02/17/23 documented as of this encounter
--- OUTSIDE RECORDS SUMMARY | 2025-03-09 09:44 | XMS_ITS | CCD ---
Author Organization [facility] Care Team Providers Care Embedded Firmware Developer Name Role Phone DR PAM KLINE Primary [...] Drug Class(es) Dates Sig (Normalized) Sig (Original) [id number] 200 actuat albuterol 0.09 mg/actuat metered dose inhaler (6 sources) beta2-Adrenergic Agonist Start: 08-12-2024 End: 08-12-2025 take 2 puff(s) by inhalation every four hours for wheezing albuterol HFA 90 mcg/act inhaler Indications: Acute cough Inhale 2 puffs every 4 (four) hours if needed for wheezing 18 g 08/12/2024 03/08/2025 Discontinued amoxicillin 500 mg oral capsule (1 source) [...] 7 days. 14 tablet 08/12/2024 08/19/2024 Active diclofenac sodium 75 mg delayed release oral tablet (3 sources) Nonsteroidal Anti-inflammatory Drug Start: 08-28-2024 End: 03-08-2025 take 1 tablet by mouth twice daily as needed diclofenac (Voltaren) 75 MG EC tablet Take 75 mg by mouth 2 (two) times a day as needed 08/28/2024 03/08/2025 Discontinued doxycycline hyclate 100 mg oral tablet (2 [...] tablet 08/12/2024 08/12/2024 Discontinued (Entered in error) famotidine 20 mg oral tablet (3 sources) Histamine-2 Receptor Antagonist Start: 08-28-2024 End: 03-08-2025 take 1 tablet by mouth in the morning famotidine (Pepcid) 20 MG tablet Take 20 mg by mouth in the morning and 20 mg before bedtime. 08/28/2024 03/08/2025 Discontinued ibuprofen 200 mg oral tablet (11 sources) Nonsteroidal Anti-inflammatory Drug End: 03-08-2025 ibuprofen 200 MG tablet Take by mouth 03/08/2025 Discontinued Multiple Vitamin (MULTIVITAMIN ADULT PO) (11 sources) Multiple Vitamin (MULTIVITAMIN ADULT PO) Multivitamin Active Completed/Discontinued Medications Medication Drug Class(es) Dates Sig (Normalized) Sig (Original) azithromycin 250 mg oral tablet (1 source) Macrolide Antimicrobial Start: 4 End: 4 take 2 tablets by mouth once daily, then take 1 tablet by mouth once daily azithromycin (Zithromax) 250 MG tablet Indications: Acute cough Take 2 tablets (500 mg) by mouth Daily for 1 day, THEN 1 tablet (250 mg) Daily for 4 days. 6 tablet 08/26/2024 08/31/2024 methylPREDNISolone 4 mg oral tablet (2 sources) Corticosteroid Start: 2 methylPREDNISolone 4 MG as directed Orally for daily dose take half with breakfast, half with dinner for 6 days Aug, Not-Taking Problems Active Problems Problem Classification Problem Date Documented Date Episodic/Chronic Abdominal pain (2 sources) Abdominal pain; Translations: [Unspecified abdominal pain] 03-08-2025 Episodic Anxiety disorders (13 sources) Anxiety; Translations: [Anxiety disorder, unspecified] Onset: 01-04-2024 01-04-2024 Chronic E Codes: Natural/environment (1 source) Other and unspecified overexertion or strenuous movements or postures, initial encounter; Translations: [OTH AND UNS OVREXRT/STRN MVMT/POS INT] Onset: 04-25-2022 Episodic E Codes: Unspecified (1 source) Activity, walking, marching and hiking; Translations: [ACTIVITY WALKING MARCHING AND HIKING] Onset: 04-25-2022 Episodic Headache; including migraine (13 sources) Migraine without aura, not refractory ; Translations: [Migraine without aura, not intractable, without status migrainosus] Onset: 01-04-2024 01-04-2024 Chronic Malaise and fatigue (2 sources) Fatigue; Translations: [Other fatigue] 03-08-2025 Episodic Nonspecific chest pain (2 sources) Chest pain; Translations: [Chest pain, unspecified] 03-08-2025 Episodic Other connective tissue disease (4 sources) Pain in right lower leg; Translations: [PAIN IN RIGHT LOWER LEG] Onset: 04-24-2022 Episodic Other lower respiratory disease (3 sources) Cough; Translations: [Acute cough] 08-12-2024 Episodic Other screening for suspected conditions (not mental disorders or infectious disease) (4 sources) Patient encounter status; Translations: [Encounter for [...] Documented Da te Episodic/Chronic Headache; including migraine (11 sources) Headache disorder; Translations: [Other headache syndrome] Onset: 01-04-2024 01-04-2024 Episodic Other and unspecified benign neoplasm (11 sources) Melanocytic nevus; Translations: [Melanocytic nevi, unspecified] Onset: 01-04-2024 01-04-2024 Episodic Other skin disorders (11 sources) Skin tag; Translations: [Other hypertrophic disorders of the skin] Onset: 01-04-2024 01-04-2024 Episodic Unclassified (1 source) Contact with and (suspected) exposure to covid-19 Z20.822 Results Test Name Value Interpretation Reference Range Facility HCG ( test) Ql (U)o n 03-08-2025 Interpretation and review of laboratory results Normal [facility] Preg Test, Ur Negative Negative [facility] Urinalysis macro (dipstick) panel (U)on 03-08-2025 Bilirubin, UA Negative Negative - 4(70) +++ mg/dL [facility] Blood, UA Negative Negative - 50 Alfredo/mcL [facility] Clarity, UA Clear [facility] re Color, UA Light Yellow [facility] are Glucose, UA Negative Negative - 1999(110) ++++ mg/dL [facility] Interpretation and review of laboratory results Abnormal [facility] Ketones, UA Negative Negative - 160(16) ++++ mg/dL [facility] Leukocytes, UA Positive Negative - 500+++ Michaela/mcL [facility] Nitrite, UA Negative Negative - Positive [facility] pH, UA 5 5 - 9 [facility] Protein, UA Positive Negative - 1999(20) ++++ mg/dL [facility] Spec Grav, UA 1 1 - 1.03 [facility] Urobilinogen, UA 0.2 0.2 - 12 mg/dL [facility] Laboratory - Microbiology an d Antimicrobial susceptibilityon 08-12-2024 SARS-CoV-2 (COVID-19) RNA LEONOR+probe Ql (Unsp spec) - [facility] No Panel Informationon 08-12 FLU A - [facility] FLU B - [facility] Interpretation and review of laboratory results Normal [facility] XR CHEST 2 VIEWSon XR CHEST [...] GDLNon AGE GDLN ACOG TESTING Note . [facility] Comment on above: TESTS RESULT FLAG UN ITS REF RANGE LAB Clinician Provided Cytology Information Source.............Cervix;Endocervix No. of containers..01 ThinPrep Vial Age Algo ACOG Kiki... FLAG LEGEND: L-Low Normal,H-High Normal,LL-Alert Low,HH-Alert High <-Panic Low,>-Panic High,A-Abnormal,AA-Critical Abnormal Performed at: 01 =G [facility] [place] [address] Billie Cervantes MD, HPV APTIMA Negative Negative [facility] Comment on above: This nucleic acid am plification test detects fourteen high- risk HPV types (16,18,31,33,35,39,45,51,52,56,58,59,66,68) without differentiation. Performed at: =G - [facility], [place] [id number] Continuous Mining Machine Lode Miner: Billie Cervantes MD, Phone: [phone] Performed at: - [facility] [address], [place] [id number] [employer] Machine Lode Miner: Billie Cervantes MD, Phone: [phone] IGP, APTIMA HPV, RFX 16/18,45 Note . [facility] Comment on above: TESTS RESULT FLAG UN ITS REF RANGE LAB DIAGNOSIS: 02 NEGATIVE FOR INTRAEPITHELIAL LESION OR MALIGNANCY. CELLULAR CHANGES ASSOCIATED WITH INFLAMMATION ARE PRESENT. Specimen adequacy: 02 Satisfactory for evaluation. Endocervical and/or squamous metaplastic cells (endocervical component) are present. Performed by: Laisha Hart, Lining Cementer (ASCP) . 02 Note: Note 02 The [...] High,A-Abnormal,AA-Critical Abnormal Performed at: 02 WB [facility] [address] [place] [address] Billie Cervantes MD, BRUSH-SPATULA CERVIX ENDOCERVIX [facility] Quick Strepon 11-10-2022 S. pyogenes Org specific cx Ql (Throat) Positive [employer] Other Quick Strep [employer] Other Quick Strepon 08-12-2022 S. pyogenes Org specific cx Ql (Throat) Negative [employer] Other Quick Strep [employer] Other US MARICRUZ DOP LEG RTon 04-24-20 US MARICRUZ DOP LEG RT EXAM: US [...] by: [place] VILLAR Date: 2022-04-24 16:31 Normal [facility] Vital Signs Date Time Vital Sign Value Performing Clinician Facility 03-08-2025 12:23-0400 Body mass index (BMI) [Ratio] 38.94 kg/m2 Lisa Rogers NP Work Phone: [facility] 03-08-2025 12:23-040 Body temperature 97.3 [degF] Lisa Rogers NP Work Phone: [facility] 03-08-2025 12:23-0400 Body weight 104.51 kg Lisa Rogers NP Work Phone: [facility] 03-08-2025 12:23-0400 Diastolic blood pressure 70 mm[Hg] Lisa Rogers FROTHING MACHINE OPERATOR Work Phone: [facility] 03-08-2025 12:23-0400 Heart rate 83 /min Lisa Rogers FROTHING MACHINE OPERATOR Work Phone: [facility] 03-08-2025 12:23-0400 SaO2% (BldA) [Mass fraction] 96 % Lisa Rogers FROTHING MACHINE OPERATOR Work Phone: [facility] 03-08-2025 12:23-0400 Systolic blood pressure 126 mm[Hg] Lisa Rogers FROTHING MACHINE OPERATOR Work Phone: [facility] 08-12-2024 09:50-0400 Body height 163.8 cm Kay Ch FROTHING MACHINE OPERATOR Work Phone: [facility] 08-12-2024 09:50-0400 Body mass index (BMI) [Ratio] 38.97 kg/m2 Kay Ch FROTHING MACHINE OPERATOR Work Phone: [facility] 08-12-2024 09:50-0400 Body temperature 100.8 [degF] Kay Ch FROTHING MACHINE OPERATOR Work Phone: [facility] 08-12-2024 09:50-0400 Body weight 104.6 kg Kay Ch FROTHING MACHINE OPERATOR Work Phone: [facility] 08-12-2024 09:50-0400 Diastolic blood pressure 74 mm[Hg] Kay Ch FROTHING MACHINE OPERATOR Work Phone: [facility] 08-12-2024 09:50-0400 Heart rate 97 /min Kay Ch FROTHING MACHINE OPERATOR Work Phone: [facility] 08-12-2024 09:50-0400 SaO2% (BldA) [Mass fraction] 99 % Kay Ch FROTHING MACHINE OPERATOR Work Phone: [facility] 08-12-2024 09:50-0400 Systolic blood pressure 120 mm[Hg] Kay Ch FROTHING MACHINE OPERATOR Work Phone: [facility] 07-12-2024 10:34-0400 Body mass index (BMI) [Ratio] 39.21 kg/m2 Lizett Hueysville PA Work Phone: [facility] 07-12-2024 10:34-0400 Body weight 105.23 kg Lizett Arevalo PA Work Phone: [facility] 07-12-2024 10:34-0400 Diastolic blood pressure 80 mm[Hg] Lizett Arevalo PA Work Phone: [facility] 07-12-2024 10:34-0400 Systolic blood pressure 130 mm[Hg] Lizett Hue[place] PA Work Phone: [facility] 11-10-2022 11:45-0500 Body height 162.56 cm Guadalupe Molina Other [employer] Other 11-10-2022 11:45-0500 Body mass index (BMI) [Ratio] 36.04 kg/m2 Guadalupepatricia Molina Other [employer] Other 11-10-2022 11:45-0500 Body temperature 98.3 [degF] Guadalupepatricia Molina Other [employer] Other 11-10-2022 11:45-0500 Body weight 95.26 kg Guadalupepatricia Molina Other [employer] Other 11-10-2022 11:45-0500 Diastolic blood pressure 90 mm[Hg] Guadalupe Tracy Other [employer] Other 11-10-2022 11:45-0500 Respiratory rate 18 /min Guadalupe Tracy Other [employer] Other 11-10-2022 11:45-0500 SaO2% (BldA) [Mass fraction] 98 % Gudaalupe Molina Other [employer] Other 11-10-2022 11:45-0500 Systolic blood pressure 147 mm[Hg] Guadalupe Tracy Other [employer] Other 08-12-2022 17:15-0400 Body height 162.56 cm Padmini Marroquin Other [employer] Other 08-12-2022 17:15-0400 Body mass index (BMI) [Ratio] 36.04 kg/m2 Padmini Marroquin Other [employer] Other 08-12-2022 17:15-0400 Body temperature 97.1 [degF] Padmini Marroquin Other [employer] Other 08-12-2022 17:15-0400 Body weight 95.26 kg Padmini Marroquin Other [employer] Other 08-12-2022 17:15-0400 Respiratory rate 18 /min Padmini Marroquin Other [employer] Other 08-12-2022 17:15-0400 SaO2% (BldA) [Mass fraction] 99 % Padmini Marroquin Other [employer] Other Encounters Encounter Date Encounter Type Care Provider Facility Start: 03-08-2025 End: 03-08-2025 Bamboo flowsheet Lisa Rogers FROTHING MACHINE OPERATOR Work Phone: [facility] Start: 03-08-2025 End: 03-08-2025 Bamboo flowsheet Lisa Rogers FROTHING MACHINE OPERATOR Work Phone: [facility] Start: 03-08-2025 End: 03-08-2025 Office outpatient visit 25 minutes Lisa Colontrick FROTHING MACHINE OPERATOR Work Phone: [facility] Comment on above: Abdominal pain, unsp ecified abdominal location (Primary Dx); Chest pain, unspecified type; Other fatigue; Encounter for lipid screening for cardiovascular disease; Anxiety; Migraine without aura and without status migrainosus, not intractable (CMS/HCC) Start: 08-26-2024 End: 08-26-2024 Orders Only Kay Ch FROTHING MACHINE OPERATOR Work Phone: [facility] Comment on above: Acute cough (Primary Dx) Start: 08-12-2024 End: 08-12-2024 Bamboo flowsheet Kay Ch FROTHING MACHINE OPERATOR Work Phone: [facility] Start: 08-12-2024 End: 08-12-2024 Bamboo flowsheet Kay Ch FROTHING MACHINE OPERATOR Work Phone: [facility] Start: 08-12-2024 End: 08-12-2024 ambulatory KAY CH Not Available Start: 08-12-2024 End: 08-12-2024 Office outpatient visit 15 minutes Kay Ch FROTHING MACHINE OPERATOR Work Phone: [facility] Comment on [...] Patient encounter procedure Lizett BREEN Work Phone: [facility] Start: 07-12-2024 End: 07-12-2024 Periodic preventive med est patient 40-64yrs Lizett Hue[place] PA Work Phone: [facility] Comment on above: Well woman exam with routine gynecological exam; Breast cancer screening by mammogram Start: 07-12-2024 End: 07-12-2024 ambulatory LIZETT AREVALO Not Available Start: 01-04-2024 End: 01-04-2024 ambulatory NO [facility] Not Available Start: 11-10-2022 End: 11-10-2022 ambulatory Guadalupe Molina Other [employer] Other Start: 11-10-2022 Office outpatient vi sit 25 minutes Guadalupe Molina [facility] Start: 08-12-2022 End: 08-12-2022 ambulatory Padmini Marroquin Other [employer] Other Start: 08-12-2022 Office outpatient ne w 30 minutes Padmini Marroquin [facility] Start: 04-24-2022 End: 04-24-[address] PAM KLINE Facility:[facility] Procedures Date Procedure Procedure Detail Performing Clinician Start: 03-08-2025 Urnls dip stick/tabl et rgnt non-auto w/o micrscp Lisa Rogers FROTHING MACHINE OPERATOR Work Phone: Start: 09-02-2024 Mammography Kay hitchcock FROTHING MACHINE OPERATOR Work Phone: Start: 08-12-2024 STATUS COVID-19/FLU Joselyn Ch FROTHING MACHINE OPERATOR Work Phone: Start: 07-12-2024 IGP,APTIMA HPV,AGE GDLN Lizett Arevalo PA Work Phone: Start: 07-12-2024 Microscopic observat ion [Identifier] in Cervix by Cyto stain Kay Ch FROTHING MACHINE OPERATOR Work Phone: Plan of Treatment Date Care Activity Detail Author Start: 07-12-2027 Screening for malign ant neoplasm of cervix [facility] Start: 09-02-2025 Screening for malign ant neoplasm of breast Mammogram [facility] Start: 06-12-2025 Influenza vaccination Influenz a Vaccine (Season Ended) [facility] Start: 03-08-2025 End: 03-08-2026 Bacteria identified in Urine by Culture Urine culture (clean catch) Microbiology Routine Abdominal pain, unspecified abdominal location Expected: 03/08/2025 (Approximate), Expires: 03/08/2026 [facility] Comment on above: Expected: 03/08/2025 (Approximate), Expires: 03/08/2026 Start: 03-08-2025 End: 03-08-2026 Comprehensive metabolic 2000 panel - Serum or Plasma Comprehensive metabolic panel Lab Routine Anxiety Expected: 03/08/2025 (Approximate), Expires: 03/08/2026 [facility] Work Phone: Comment on above: Expected: 03/08/2025 (Approximate), Expires: 03/08/2026 Start: 03-08-2025 End: 03-08-2026 ECG 12 lead ECG 12 lead ECG Routine Chest pain, unspecified type Expected: 03/08/2025 (Approximate), Expires: 03/08/2026 [facility] Comment on above: Expected: 03/08/2025 (Approximate), Expires: 03/08/2026 Start: 03-08-2025 End: 03-08-2026 Lipid 1996 panel - Serum or Plasma Lipid panel Lab Routine Encounter for lipid screening for cardiovascular disease Expected: 03/08/2025 (Approximate), Expires: 03/08/2026 [facility] Comment on above: Expected: 03/08/2025 (Approximate), Expires: 03/08/2026 Start: 03-08-2025 End: 03-08-2026 TSH W/REFLEX TO FT4 TSH W/REFLEX TO FT4 Lab Routine Other fatigue Expected: 03/08/2025 (Approximate), Expires: 03/08/2026 [facility] Comment on above: Expected: 03/08/2025 (Approximate), Expires: 03/08/2026 Start: 03-08-2025 End: 03-08-2026 XR Chest 2 Views XR chest 2 views Imaging Routine Chest pain, unspecified type Expected: 03/08/2025, Expires: 03/08/2026 [facility] Comment on above: Expected: 03/08/2025 , Expires: 03/08/2026 Start: 03-08-2025 End: 03-08-2025 Patient encounter procedure 03/08/2025 12:30 PM EDT Office Visit [facility] [address] [facility] [id number] Lisa Rogers FROTHING MACHINE OPERATOR [address] [facility] [place] [address] Arrived [facility] Comment on above: Arrived Start: 08-12-2024 End: 08-12-2025 XR Chest 2 Views [facility] Work Phone: Comment on above: Expected: 08/12/2024 , Expires: 08/12/2025 Start: 08-12-2024 End: 08-12-2024 Patient encounter procedure 08/12/2024 10:00 AM EDT Office Visit [facility] [address] [facility] [phone] Kay Ch NP [address] [facility], [place] [address] Arrived [facility] Comment on above: Arrived Start: 07-12-2024 End: 09-11-2025 MG Breast - bilateral Screening Bilateral screening mammogram Imaging Routine Breast cancer screening by mammogram Expected: 07/12/2024 (Approximate), Expires: 09/11/2025 [facility] Work Phone: Comment on above: Expected: 07/12/2024 (Approximate), Expires: 09/11/2025 Start: 07-12-2024 End: 07-12-2024 Patient encounter procedure 07/12/2024 10:00 AM EDT Office Visit [facility] [address] [phone] Lizett Arevalo PA [address] [facility] [address] [facility] [address] [place], [place] [id number] Arrived [facility] Comment on above: Arrived Start: 06-12-2024 Influenza vaccination Influenza Vacc ine (#1) [facility] Start: 2024 Screening for malign ant neoplasm of breast Mammogram [facility] Start: 02-12-2014 Screening for malign ant neoplasm of cervix [facility] Start: 02-12-2005 Screening for malign ant neoplasm of cervix Pap Smear [facility] THIN PREP TIS PAP AN D HR HPV DNA THIN PREP TIS PAP AND HR HPV DNA Pathology and Cytology Routine Well woman exam with routine gynecological exam Ordered: 07/12/2024 [facility] Comment on above: Ordered: 07/12/2024 Immunizations Immunization Date Immunization Notes Care Provider Hossein pacheco 09-02-2019 influenza, injectabl e, quadrivalent, contains preservative Lizett BREEN Work Phone: [facility] 09-02-2019 influenza virus vacc ine, unspecified formulation Lizett BREEN Work Phone: [facility] 07-02-2018 influenza, injectabl e, quadrivalent, contains preservative Lizett BREEN Work Phone: [facility] 08-26-2017 influenza, injectabl e, quadrivalent, preservative free Lizett BREEN Work Phone: [facility] 07-18-2016 influenza, injectabl e, quadrivalent, preservative free Lizett Hueys[place] PA Work Phone: [facility] 06-15-2015 influenza, seasonal, injectable, preservative free Lizett BREEN Work Phone: [facility] 04-24-2015 tetanus toxoid, redu alice diphtheria toxoid, and acellular pertussis vaccine, adsorbed Lizett BREEN Work Phone: [facility] 07-20-2014 influenza, seasonal, injectable, preservative free Lizett Arevalo PA Work Phone: [facility] Payers Date Payer Category Payer Managed Care HMO (unspecified) [id number] 1984 Unknown [id number] 1984 Unknown [id number] 1984 Unknown [id number] 1984 Unknown [id number] 1959 Private Health Insurance [id number] Social History Date Type Detail Facility Start: 01-04-2024 End: 03-08-2025 Sex Assigned At [facility] Start: 01-04-2024 Tobacco smoking status NHIS Never sm oked tobacco [facility] Start: 01-04-2024 Tobacco use and exposure Smoke less tobacco non-user [facility] Start: 01-04-2024 End: 03-08-2025 Alcoholic beverage intake Ex-drinker (finding) [facility] Start: 01-04-2024 End: 03-08-2025 History of Social function [facility] [...] Identifies as female gender (finding) [facility] Do you belong to any clubs or organizations such as taoist groups, unions, fraternal or athletic groups, or school groups? Yes [facility] How often to you hav e a drink containing alcohol? Monthly or less [facility] How many standard dr inks containing alcohol do you have on a typical day? 1 or 2 [facility] Do you feel stress - tense, restless, nervous, or anxious, or unable to sleep at night because your mind is troubled all the time - these days [OSQ] Rather much [facility] (I/We) worried wheth er (my/our) food would run out before (I/we) got money to buy more. Never true [facility] Functional Status Date Assessment Result Facility 03-08-2025 Total score [AUDIT-C] 1 03/08/20 10:26 AM EDT Mychart, Generic [facility] 03-08-2025 How often to you hav e a drink containing alcohol? Monthly or less 03/08/2025 10:26 AM EDT Mychart, Generic Monthly or less [facility] 03-08-[address] inks containing alcohol do you have on a typical day? 1 or 2 03/08/2025 10:26 AM EDT Mychart, Generic 1 or 2 [facility] 03-08-2025 How often do you hav e 6 or more drinks on 1 occasion? Never 03/08/2025 10:26 AM EDT Mychart, Generic Never [facility] Clinical Notes 06-17-2022 to 03-08-2025 Lisa Rogers, GRADY - 03/08/2025 12:30 PM Antonio Ch NP - 08/12/2024 10:00 AM NUHA Pelayo - 07/12/2024 10:00 AM EDT Note Date & Type Note Facility 03-08-2025 History of Presen t illness Narrative Images [...] Negative. OBJECTIVE: Vitals: 03/08/25 1223 Temp: 97.3 F Physical Exam Vitals reviewed. Constitutional: Appearance: Normal appearance. HENT: Head: Normocephalic. Right Ear: Hearing and tympanic membrane normal. Left Ear: Hearing and tympanic membrane normal. Nose: Nose normal. Right Turbinates: Not enlarged. Left Turbinates: Not enlarged. Right Sinus: No maxillary sinus tenderness or frontal sinus tenderness. Left Sinus: No maxillary sinus tenderness or frontal sinus tenderness. Mouth/Throat: Lips: [place]. Mouth: Mucous membranes are moist. Pharynx: Oropharynx [...] follow-ups on file. documented in this encounter [facility] 08-12-2024 History of Presen t illness Narrative Images from the original note were not included. Meliza Mancini is a 39 y.o. female presents with chief complaint of Cough (Started Thursday night, has wheezing. /) HPI: History of Present Illness The patient presents for evaluation of a cough. She began experiencing a cough on Thursday night, which has persisted since then. The cough is producing [place] green phlegm. She reports feeling wheezy when [...] prn for fever/discomfort. documented in this encounter [facility] 07-12-2024 History of Presen t illness Narrative Reason for Appointment: Patient ID: Meliza Mancini is a 39 y.o. female who presents for Gynecologic Exam Patient presents today for Annual Exam. MEDICATIONS Current Outpatient Medications Medication Instructions ibuprofen 200 MG tablet Oral Multiple Vitamin (MULTIVITAMIN ADULT PO) Multivitamin ALLERGIES No Known Allergies PROBLEMS Active Ambulatory Problems Diagnosis Date Noted Anxiety 01/04/2024 Atypical mole 01/04/2024 Migraine without aura and without status migrainosus, not intractable ([facility]) 01/04/2024 Other headache syndrome 01/04/2024 Skin tag [...] CT ANGIOGRAM CHEST 12/13/2018 CT ANGIOGRAM CHEST [facility] DATA LEGACY DILATION AND CURETTAGE OF UTERUS [...] nursing note reviewed. Exam conducted with a university registrar present. Vitals: Estimated body mass index is [...] was given to patient to schedule at [facility]. Pt also complains of a small [...] of: NUHA Valencia documented in this encounter [facility] 11-10-2022 Evaluation note Encounter Date Diagnosis Assessment [...] no improvement in 2 to 3 days. [employer] Other 11-01-2022 Evaluation note* Encounter Date Diagnosis Assessment Notes Treatment Notes Treatment Clinical Notes Aug, Sore throat (ICD-10 - J02.9) [...] (suspected) exposure to covid-19 (ICD-10 - Z20.822) [employer] Other 09-06-2022 NotePROCEDURE: ADORT 64, 5 mm slice axial images were [...] and signed by Polo Naylor on 06/17/2022 [facility]36[facility]* Diagnosis Well woman exam with routine gynecological exam Routine gynecological examination Breast cancer screening by mammogram documented in this encounter [facility] HealthcareEvaluation note* Diagnosis Acute cough- Primary documented in this encounter [facility] HealthcareEvaluation note* Diagnosis Acute cough- Primary documented in this encounter [facility] HealthcareEvaluation note* Diagnosis Abdominal pain, unspecified abdominal location- Primary Chest pain, unspecified type Other fatigue Encounter for lipid screening for cardiovascular disease Anxiety Anxiety state, unspecified Migraine without aura and without status migrainosus, not intractable (CMS/HCC) documented in this encounter [facility] HealthcareHistory general Narrative - Reported* Type Description Date Surgical History eyes [employer] Other Summary Purpose Family History No Family History Records FoundNo Family History Records FoundNo Family History Records Found Advance Directives No Advanced Directives Records FoundNo Advanced Directives Records FoundNo Advanced Directives Records Found Additional Source Comments INFORMATION SOURCE (unrecogn ized section and content) DATE CREATED AUTHOR 05/01/2022 [facility] DATE CREATED AUTHOR AUTHOR'S ORGANIZ ATION 06/18/2022 [facility] DATE CREATED AUTHOR AUTHOR'S ORGANIZ ATION 08/17/2024 [facility] EPIC REASON FOR VISIT (unrecogniz ed section and content) Reason Comments Gynecologic Exam Reason Comments Cough Started Thursday nig ht, has wheezing. Reason Comments Fatigue Care Teams (unrecognized sec tion and content) Embedded Firmware Developer Relationship Specialty Start Date End Date Pam Kline MD [address] [place] [address] PCP - General Family Medicine 02/17/23 Embedded Firmware Developer Relationship Specialty Start Date End Date Pam Kline MD [address] [place] [address] PCP - General Family Medicine 02/17/23 Embedded Firmware Developer Relationship Specialty Start Date End Date Pam Kline MD [address] [place] [address] PCP - General Family Medicine 02/17/23 Embedded Firmware Developer Relationship Specialty Start Date End Date Pam Kline MD [address] [place] [address] PCP - General Family Medicine 02/17/23 Embedded Firmware Developer Relationship Specialty Start Date End Date Pam Kline MD [address] [place] [address] PCP - General Family Medicine 02/17/23 Embedded Firmware Developer Relationship Specialty Start Date End Date Pam Kline MD [address] [place] [address] PCP - General Family Medicine 02/17/23 FOR [...] BE BASED ON THE PRIMARY CLINICAL RECORDS. [employer] provides no warranty or guarantee of the accuracy or completeness of information in this document.
--- NOTE | 2025-03-09 09:46 | ECG_ITS ---
[facility] [place] Test Date: 2025-03-09 Pat Name: JAIMIE HIGHTOWER Department: Room: - Gender: Female Employment Adjudicator: : 1985 Requested By: Order Number: [id number] Reading MD: JANEE BEAULIEU M.D. Measurements Intervals [place] Rate: 89 P: 58 CO: 126 QRS: 62 QRSD: 84 T: 48 QT: 348 QTc: 394 Interpretive Statements 1100 Sinus rhythm 9110 normal ECG Compared to ECG 08/28/2024 09:02:18 Sinus arrhythmia no longer present Electronically Signed On 03-09-2025 21:11:49 EDT by JANEE BEAULIEU M.D.
--- NOTE | 2025-03-09 09:48 | ED_ITS ---
HPI HPI - General Adult General Chief complaint: Chest Pain Stated complaint: chest tightness, fatigue Time Seen by Provider: 03/09/25 09:36 Source: patient Mode of arrival: walk-in Limitations: no limitations History of Present Illness HPI narrative: 40-year-old female presents to the emergency department for chest pain and tightness which she has been having daily for the last 2 weeks. She saw her doctor yesterday who ordered some outpatient testing. As far as she knows it was all normal. No trauma or fever. She has been under a fair amount of stress recently. Sometimes it goes into her back as well. Related Data Home Medications ?Medication ?Instructions ?Recorded ?Confirmed albuterol sulfate 90 mcg/actuation 2 inh inhalation Q4 H PRN shortness 08/28/24 03/09/25 aerosol inhaler of breath or wheezing Held on 03/09/25. Instructions: dc Previous Rx's ?Medication ?Instructions ?Recorded famotidine 20 mg tablet (Pepcid) 20 mg PO BID #10 tabs 08/28/24 Allergies Allergy/AdvReac Type Severity Reaction Status Date / Time No Known Drug Allergies Allergy Verified 08/28/24 08:58 Opioid HPI Opioid Management Most Recent Opioid Data: Last Pain Scale 6 Today, 09:27 Review of Systems ROS Narrative A ten point review of systems is negative except as noted above. PFSH PFSH Social History Little interest or pleasure in doing things: not at all Feeling down, depressed, or hopeless: not at all Exam Narrative Exam Narrative: Nurses note and vital signs reviewed and patient is not hypoxic. General: The patient appears well and in no apparent distress. Patient is resting comfortably on cart. Skin: Warm, dry, no pallor noted. There is no rash noted. Head: Normocephalic, atraumatic Eye: Normal conjunctiva, no drainage Ears, Nose, Mouth, and Throat: oral mucosa is moist. Nares patent. Cardiovascular: Regular Rate and Rhythm Respiratory: Patient is in no distress, no accessory muscle use, lungs are clear to auscultation, no wheezing, rales or rhonchi Back: non-tender GI: Soft and nontender Musculoskeletal: The patient has no evidence of calf tenderness, no pitting edema, symmetrical pulses noted bilaterally Neurological: A&O, normal speech Psychiatric: Cooperative Constitutional Vital Signs, click to edit/add: Last Vital Signs Temp 98.2 F 03/09/25 09:27 Pulse 96 H 03/09/25 11:10 Resp 21 H 03/09/25 11:10 BP 141/103 H 03/09/25 11:00 Pulse Ox 94 L 03/09/25 11:10 O2 Del Method Room Air 03/09/25 09:27 Course Vital Signs Vital signs: Vital Signs Temperature 98.2 F 03/09/25 09:27 Pulse Rate 92 H 03/09/25 09:27 Respiratory Rate 18 03/09/25 09:27 Blood Pressure 168/103 H 03/09/25 09:27 Pulse Oximetry 97 03/09/25 09:27 Oxygen Delivery Method Room Air 03/09/25 09:27 Temperature 98.2 F 03/09/25 09:27 Pulse Rate 96 H 03/09/25 11:10 Respiratory Rate 21 H 03/09/25 11:10 Blood Pressure 141/103 H 03/09/25 11:00 Pulse Oximetry 94 L 03/09/25 11:10 Oxygen Delivery Method Room Air 03/09/25 09:27 Medical Decision Making MDM Narrative Medical decision making narrative: Her workup is negative including troponin. EKG is normal as well and she is discharged home. Follow-up with her PCP. At this point I do not suspect acute coronary syndrome. Treatment diagnosis and follow-up were discussed with the patient. Differential Diagnosis Differential Diagnosis: OK, NSTEMI, chest wall pain, stress Lab Data Lab results reviewed: Yes I reviewed the patient's lab results Labs: Lab Results 03/09/25 Range/Units 10:07 WBC 8.3 (4.0-11.0) 10^3/uL RBC 4.22 (4.20-5.40) 10^6/uL Hgb 12.8 (12.0-16.0) g/dL Hct 39.6 (36.0-48.0) % MCV 93.8 (81.0-99.0) fL MCH 30.3 (26.7-34.0) pg MCHC 32.3 (29.9-35.2) g/dL RDW 13.2 (11.0-15.0) % Plt Count 185 (150-450) 10^3/uL MPV 9.5 (9.5-13.5) fL Neut % (Auto) 66.9 (43.0-75.0) % Lymph % (Auto) 23.8 (20.5-60.0) % Rush % (Auto) 4.7 (1.7-12.0) % Eos % (Auto) 3.6 (0.9-7.0) % Baso % (Auto) 0.5 (0.2-2.0) % Neut # (Auto) 5.5 (1.4-6.5) 10^3/uL Lymph # (Auto) 2.0 (1.2-3.8) 10^3/uL Rush # (Auto) 0.4 (0.3-0.8) 10^3/uL Eos # (Auto) 0.3 (0.0-0.7) 10^3/uL Baso # (Auto) 0.0 (0.0-0.1) 10^3/uL Abs Immat Gran (auto) 0.04 H (0.00-0.03) 10^3/uL Imm/Tot Granulo (auto) 0.5 (0.0-0.5) % Sodium 142 (136-145) mmol/L Potassium 3.9 (3.5-5.1) mmol/L Chloride 104 (98-107) mmol/L Carbon Dioxide 26.5 (21.0-32.0) mmol/L Anion Gap 15.4 BUN 8.0 (7.0-18.0) mg/dL Creatinine 0.75 (0.55-1.02) mg/dL Est GFR ( Amer) >60 (>=60 mL/min/1.73m^2) Est GFR (Non-Af Amer) >60 (>=60 mL/min/1.73m^2) BUN/Creatinine Ratio 10.7 Glucose 142 H (74-106) mg/dL Calcium 8.4 L (8.5-10.1) mg/dL Troponin I High Sens 5.3 (4.0-51.3) pg/mL Imaging Data Chest x-ray: Radiologist's impression: ITS Impressions Chest X-Ray 03/09/25 10:50 IMPRESSION: NO ACUTE FINDINGS Impression dictated by: Bijal Miles M.D. 03/09/2025 11:07 AM Dictation Location: [place] [address] Electronically authenticated by: [id number] Y Date: 03/09/2025 11:07 ECG Data Attestation: I personally reviewed and interpreted this ECG as follows: (EKG on my interpretation shows normal sinus rhythm with a rate of 89 and no acute change) Discharge Plan Discharge Chief Complaint: Chest Pain Clinical Impression: Chest pain Patient Disposition: Home, Self-Care Time of Disposition Decision: 11:23 Condition: Good Mode of Transportation: Private Vehicle Prescriptions / Home Meds: No Action albuterol sulfate 90 mcg/actuation HFA aerosol inhaler 2 inh INHALATION Q4H PRN (Reason: shortness of breath or wheezing) famotidine [Pepcid] 20 mg tablet 20 mg PO BID Qty: 10 0RF Print Language: Belarusian Instructions: Chest Pain (ED) Referrals: TANYA KLINE [Primary Care Provider, Family Practice] - 1 week
[2025-03-09 10:19] LABS: Basophils Percent Auto 0.5 % (0.2-2.0); Eosinophils Absolute Auto 0.3 10^3/uL (0.0-0.7); Eosinophils Percent Auto 3.6 % (0.9-7.0); Hematocrit 39.6 % (36.0-48.0); Hemoglobin 12.8 g/dL (12.0-16.0); Immature Granulocytes Abs Auto 0.04 10^3/uL (0.00-0.03); Immature Granulocytes Pct Auto 0.5 % (0.0-0.5); Lymphocytes Percent Auto 23.8 % (20.5-60.0); Mean Corpuscular HGB Conc 32.3 g/dL (29.9-35.2); Mean Corpuscular Hemoglobin 30.3 pg (26.7-34.0); Mean Corpuscular Volume 93.8 fL (81.0-99.0); Mean Platelet Volume 9.5 fL (9.5-13.5); Monocytes Absolute Auto 0.4 10^3/uL (0.3-0.8); Monocytes Percent Auto 4.7 % (1.7-12.0); Neutrophils Absolute Auto 5.5 10^3/uL (1.4-6.5); Neutrophils Percent Auto 66.9 % (43.0-75.0); Platelet Count 185 10^3/uL (150-450); Red Blood Count 4.22 10^6/uL (4.20-5.40); Red Cell Distribution Width 13.2 % (11.0-15.0); White Blood Count 8.3 10^3/uL (4.0-11.0)
[2025-03-09 10:41] LABS: Anion Gap 15.4; BUN Creatinine Ratio 10.7; Calcium 8.4 mg/dL (8.5-10.1); Carbon Dioxide 26.5 mmol/L (21.0-32.0); Chloride 104 mmol/L (98-107); Estimated GFR (African America >60 (>=60 mL/min/1.73m^2); Estimated GFR (Non-African Ame >60 (>=60 mL/min/1.73m^2); Glucose 142 mg/dL (74-106); Potassium 3.9 mmol/L (3.5-5.1); Sodium 142 mmol/L (136-145); Troponin I High Sensitivity 5.3 pg/mL (4.0-51.3)
--- NOTE | 2025-03-09 10:50 | XR_ITS ---
The [place] [id number] Patient Name: JAIMIE HIGHTOWER MRN: [id number] date: 1985 Sex: F Assigned Patient Location: ER Current Patient Location: ER Accession/Order Number: [id number] Exam Date: 03/09/2025 11:06 Report Date: 03/09/2025 11:07 At the request of: NICKI ONEILL MD Procedure: XR chest 1V PORTABLE AP ERECT CHEST 1050 hours CLINICAL HISTORY: Chest pain and shortness of breath COMPARISON: 08/28/2024 There is continued mild elevation of the right hemidiaphragm. The heart is top normal in size. There is no vascular congestion. The lungs, as visualized, are clear. There is no effusion or pneumothorax. The osseous structures are intact. XR/XR chest 1V IMPRESSION: NO ACUTE FINDINGS Impression dictated by: Bijal Miles M.D. 03/09/2025 11:07 AM Dictation Location: [place] [address] Electronically authenticated by: [id number] Y Date: 03/09/2025 11:07
== END 2025-03-09 11:31 | disposition home or self-care (01) ==
PROVIDERS: Emergency Provider Emergency Medicine; PCP Family Medicine
DX: R07.89 Other chest pain (principal); F43.9 Reaction to severe stress, unspecified
CPT/HCPCS: 36415; 71045; 80048; 84484; 85025; 93005; 99285